=== PATIENT | female | born 1950 | race Caucasian/White ===

== ENCOUNTER 2020-06-03 08:01 | Outpatient (REF) | payer MEDICARE, OTHER, SELFPAY ==
[2020-06-03 10:17] LABS: MANUAL DIFF FLAG NO
[2020-06-03 10:23] LABS: Basophils Absolute Auto 0.1 X10*3/uL (0.0-0.2); Basophils Percent Auto 0.9 % (0-2); Eosinophils Absolute Auto 0.2 X10*3/uL (0.0-0.4); Eosinophils Percent Auto 2.7 % (0-4); Hematocrit 39.7 % (37-47); Imm Gran Abs Auto 0.02 X10*3/uL (0.00-0.03); Imm Gran Pct Auto 0.3 % (0.0-0.4); Lymphocytes Absolute Auto 1.7 X10*3/uL (1.2-4.9); Lymphocytes Percent Auto 22.5 % (20-40); Mean Corpuscular HGB Conc 32.7 g/dl (31.0-35.0); Mean Corpuscular Hemoglobin 28.8 pg (27.0-33.0); Mean Corpuscular Volume 87.8 fL (80-98); Mean Platelet Volume 12.1 fL (9.4-12.3); Monocytes Absolute Auto 0.6 X10*3/uL (0.1-1.2); Monocytes Percent Auto 7.8 % (2-11); Neutrophils Absolute Auto 4.9 X10*3/uL (2.0-8.3); Neutrophils Percent Auto 65.8 % (45-73); Platelet Count 179 X10*3/uL (160-400); Red Blood Count 4.52 X10*6/uL (4.20-5.50); Red Cell Distribution Width 13.1 % (11.0-16.0); White Blood Count 7.5 X10*3/uL (4.8-10.8)
[2020-06-03 10:36] LABS: Estimated Average Glucose 166 mg/dL; Hemoglobin A1c % 7.4 %
[2020-06-03 11:02] LABS: Alanine Aminotransferase 46 U/L (0-31); Albumin Level 4.4 g/dL (3.5-5.0); Alkaline Phosphatase 81 U/L (39-117); Anion Gap 15 (12-20); Aspartate Amino Transferase 37 U/L (5-31); Bilirubin Total 0.5 mg/dL (0.0-1.0); Blood Urea Nitrogen 17 mg/dL (9-16); Calcium 8.9 mg/dL (8.4-10.2); Carbon Dioxide 29 mmol/L (22-29); Chloride 103 mmol/L (96-108); Estimated Glomerular Filt Rate > 60; Glucose Fasting 163 mg/dL (60-99); Potassium 3.6 mmol/l (3.3-5.1); Sodium 143 mmol/L (135-145); Total Protein 7.4 g/dL (6.5-8.0)
[2020-06-03 11:40] LABS: Creatinine Urine 135.74 mg/dL
== END 2020-06-03 08:02 | disposition home or self-care (01) ==
LOC: HO.10HDL 08:01
PROVIDERS: Visit Provider Internal Medicine
DX: E11.9 Type 2 diabetes mellitus without complications (principal); K21.9 Gastro-esophageal reflux disease without esophagitis; I10 Essential (primary) hypertension
CPT/HCPCS: 36415; 80053; 82043; 83036; 85025

== ENCOUNTER 2020-06-05 10:30 | Outpatient (REF) | payer MEDICARE, SELFPAY ==
--- NOTE | 2020-06-05 10:35 | MM_ITS ---
EXAMINATION: MM SCREENING DIGITAL BREAST TOMOSYNTHESIS, BILATERAL CLINICAL INFORMATION: Screening. Asymptomatic. The lifetime risk of breast cancer based on the Tyrer-Cuzick Model is 3.4%. COMPARISON: Mammography: June 01, 2019 and studies dating back to January 11, 2014 TECHNIQUE: Digital breast tomosynthesis is performed in both the craniocaudal and mediolateral oblique views along with computer-aided detection (CAD). Synthesized 2D images are generated from the tomosynthesis. FINDINGS: There are scattered areas of fibroglandular density (ACR BI-RADS breast composition Category b). There are no significant masses, abnormal calcifications, or other abnormalities. MM/MM tomosynthesis screening BI IMPRESSION: There are no significant changes from prior study. ASSESSMENT: BI-RADS 1: Negative RECOMMENDATION: Routine annual mammography screening. This patient's information was entered into a reminder system with a target due date for their next mammogram.
== END 2020-06-05 10:31 | disposition home or self-care (01) ==
LOC: HO.MAMMO 10:30
PROVIDERS: PCP Internal Medicine; Visit Provider Internal Medicine
DX: Z12.31 Encounter for screening mammogram for malignant neoplasm of breast (principal)
CPT/HCPCS: 77063; 77067

== ENCOUNTER 2020-12-03 08:47 | Outpatient (REF) | payer MEDICARE, SELFPAY ==
[2020-12-03 09:56] LABS: MANUAL DIFF FLAG NO
[2020-12-03 10:03] LABS: Basophils Percent Auto 0.3 % (0-2); Eosinophils Absolute Auto 0.2 X10*3/uL (0.0-0.4); Eosinophils Percent Auto 2.2 % (0-4); Hematocrit 40.4 % (37-47); Hemoglobin 13.5 g/dl (12.0-16.0); Imm Gran Abs Auto 0.02 X10*3/uL (0.00-0.03); Imm Gran Pct Auto 0.3 % (0.0-0.4); Lymphocytes Absolute Auto 1.4 X10*3/uL (1.2-4.9); Lymphocytes Percent Auto 17.9 % (20-40); Mean Corpuscular HGB Conc 33.4 g/dl (31.0-35.0); Mean Corpuscular Hemoglobin 29.3 pg (27.0-33.0); Mean Corpuscular Volume 87.8 fL (80-98); Monocytes Absolute Auto 0.6 X10*3/uL (0.1-1.2); Monocytes Percent Auto 8.2 % (2-11); Neutrophils Absolute Auto 5.4 X10*3/uL (2.0-8.3); Neutrophils Percent Auto 71.1 % (45-73); Platelet Count 191 X10*3/uL (160-400); Red Cell Distribution Width 13.5 % (11.0-16.0); White Blood Count 7.7 X10*3/uL (4.8-10.8)
[2020-12-03 10:12] LABS: Estimated Average Glucose 166 mg/dL; Hemoglobin A1c % 7.4 %
[2020-12-03 10:33] LABS: Creatinine Urine 188.08 mg/dL; Microalbum/Creatinine Ratio Ur 72.8 ug/mg cr
[2020-12-03 10:41] LABS: Alanine Aminotransferase 70 U/L (0-31); Albumin Level 4.3 g/dL (3.5-5.0); Alkaline Phosphatase 86 U/L (39-117); Anion Gap 15 (12-20); Aspartate Amino Transferase 44 U/L (5-31); Bilirubin Total 0.6 mg/dL (0.0-1.0); Blood Urea Nitrogen 16 mg/dL (9-16); Calcium 9.2 mg/dL (8.4-10.2); Carbon Dioxide 26 mmol/L (22-29); Chloride 104 mmol/L (96-108); Estimated Glomerular Filt Rate > 60; Glucose Random 155 mg/dL (60-115); Potassium 3.8 mmol/L (3.3-5.1); Sodium 141 mmol/L (135-145); Total Protein 7.3 g/dL (6.5-8.0)
== END 2020-12-03 08:48 | disposition home or self-care (01) ==
LOC: HO.10HDL 08:47
PROVIDERS: Visit Provider Internal Medicine
DX: I10 Essential (primary) hypertension (principal); E11.9 Type 2 diabetes mellitus without complications; K21.9 Gastro-esophageal reflux disease without esophagitis
CPT/HCPCS: 36415; 80053; 82043; 83036; 85025

== ENCOUNTER 2021-05-25 08:33 | Outpatient (REF) | payer MEDICARE, OTHER, SELFPAY ==
[2021-05-25 10:08] LABS: MANUAL DIFF FLAG NO
[2021-05-25 10:12] LABS: Basophils Absolute Auto 0.1 X10*3/uL (0.0-0.2); Basophils Percent Auto 0.8 % (0-2); Eosinophils Absolute Auto 0.2 X10*3/uL (0.0-0.4); Eosinophils Percent Auto 3.1 % (0-4); Hematocrit 39.4 % (37.0-47.0); Hemoglobin 13.5 g/dl (12.0-16.0); Imm Gran Abs Auto 0.02 X10*3/uL (0.00-0.03); Imm Gran Pct Auto 0.3 % (0.0-0.4); Lymphocytes Absolute Auto 1.6 X10*3/uL (1.2-4.9); Lymphocytes Percent Auto 20.7 % (20-40); Mean Corpuscular HGB Conc 34.3 g/dl (31.0-35.0); Mean Corpuscular Volume 84.7 fL (80.0-98.0); Mean Platelet Volume 12.3 fL (9.4-12.3); Monocytes Absolute Auto 0.6 X10*3/uL (0.1-1.2); Monocytes Percent Auto 8.4 % (2-11); Neutrophils Absolute Auto 5.1 x10*3/uL (2.0-8.3); Neutrophils Percent Auto 66.7 % (45-73); Platelet Count 197 X10*3/uL (160-400); Red Blood Count 4.65 X10*6/uL (4.20-5.50); White Blood Count 7.6 X10*3/uL (4.8-10.8)
[2021-05-25 10:26] LABS: Alanine Aminotransferase 29 U/L (0-31); Albumin Level 4.3 g/dL (3.5-5.0); Alkaline Phosphatase 88 U/L (39-117); Anion Gap 14 (12-20); Aspartate Amino Transferase 21 U/L (5-31); Bilirubin Total 0.4 mg/dL (0.0-1.0); Blood Urea Nitrogen 18 mg/dL (9-16); Calcium 9.4 mg/dL (8.4-10.2); Carbon Dioxide 28 mmol/L (22-29); Chloride 103 mmol/L (96-108); Cholesterol 157 mg/dL; Estimated Glomerular Filt Rate > 60; Glucose Fasting 159 mg/dL (60-99); HDL Cholesterol 31 mg/dL; LDL Cholesterol Calculated 81 mg/dl; Potassium 3.7 mmol/L (3.3-5.1); Sodium 141 mmol/L (135-145); Total Protein 7.6 g/dL (6.5-8.0); Triglycerides 228 mg/dL
[2021-05-25 10:50] LABS: Creatinine Urine 78.28 mg/dL; Microalbum/Creatinine Ratio Ur 42.1 ug/mg cr
[2021-05-25 11:04] LABS: Estimated Average Glucose 180 mg/dL; Hemoglobin A1c % 7.9 %
== END 2021-05-25 08:34 | disposition home or self-care (01) ==
LOC: HO.10HDL 08:33
PROVIDERS: Visit Provider Internal Medicine
DX: I10 Essential (primary) hypertension (principal); E78.00 Pure hypercholesterolemia, unspecified; E11.9 Type 2 diabetes mellitus without complications
CPT/HCPCS: 36415; 80053; 80061; 82043; 83036; 85025

== ENCOUNTER 2021-07-31 15:42 | Outpatient (REF) | payer MEDICARE, OTHER, SELFPAY ==
--- NOTE | ~2021-07-31 | MM_ITS ---
EXAMINATION: MM SCREENING DIGITAL BREAST TOMOSYNTHESIS, BILATERAL CLINICAL INFORMATION: Screening. Asymptomatic. The lifetime risk of breast cancer based on the Tyrer-Cuzick Model is 3%. COMPARISON: Mammography: 06/05/2020, 06/01/2019, 04/08/2018 TECHNIQUE: Digital breast tomosynthesis is performed in both the craniocaudal and mediolateral oblique views along with computer-aided detection (CAD). Synthesized 2D images are generated from the tomosynthesis. Additional exaggerated right CC view is provided. FINDINGS: There are scattered areas of fibroglandular density (ACR BI-RADS breast composition Category b). There are no significant masses, abnormal calcifications, or other abnormalities. Parenchymal pattern is similar to prior studies. There is no developing density or architectural abnormality. The axilla and skin contours are unremarkable. No significant changes. MM/MM tomosynthesis screening BI IMPRESSION: No mammographic evidence of malignancy. ASSESSMENT: BI-RADS 1: Negative RECOMMENDATION: Routine annual mammography screening. This patient's information was entered into a reminder system with a target due date for their next mammogram.
== END 2021-07-31 15:43 | disposition home or self-care (01) ==
LOC: HO.MAMMO 15:42
PROVIDERS: Visit Provider Internal Medicine
DX: Z12.31 Encounter for screening mammogram for malignant neoplasm of breast (principal)
CPT/HCPCS: 77063; 77067

== ENCOUNTER 2021-08-31 08:25 | Outpatient (REF) | payer MEDICARE, OTHER, SELFPAY ==
[2021-08-31 10:06] LABS: MANUAL DIFF FLAG NO
[2021-08-31 10:16] LABS: Basophils Absolute Auto 0.1 X10*3/uL (0.0-0.2); Basophils Percent Auto 0.8 % (0-2); Eosinophils Absolute Auto 0.3 X10*3/uL (0.0-0.4); Eosinophils Percent Auto 3.5 % (0-4); Hematocrit 39.6 % (37.0-47.0); Hemoglobin 13.2 g/dl (12.0-16.0); Imm Gran Abs Auto 0.02 X10*3/uL (0.00-0.03); Imm Gran Pct Auto 0.3 % (0.0-0.4); Lymphocytes Absolute Auto 1.7 X10*3/uL (1.2-4.9); Lymphocytes Percent Auto 24.2 % (20-40); Mean Corpuscular HGB Conc 33.3 g/dl (31.0-35.0); Mean Corpuscular Hemoglobin 28.6 pg (27.0-33.0); Mean Corpuscular Volume 85.9 fL (80.0-98.0); Mean Platelet Volume 12.7 fL (9.4-12.3); Monocytes Absolute Auto 0.6 X10*3/uL (0.1-1.2); Monocytes Percent Auto 8.2 % (2-11); Neutrophils Absolute Auto 4.5 x10*3/uL (2.0-8.3); Platelet Count 192 X10*3/uL (160-400); Red Blood Count 4.61 X10*6/uL (4.20-5.50); Red Cell Distribution Width 13.2 % (11.0-16.0); White Blood Count 7.2 X10*3/uL (4.8-10.8)
[2021-08-31 10:28] LABS: Alanine Aminotransferase 28 U/L (0-31); Albumin Level 4.3 g/dL (3.5-5.0); Alkaline Phosphatase 87 U/L (39-117); Anion Gap 12 (12-20); Aspartate Amino Transferase 24 U/L (5-31); Bilirubin Total 0.5 mg/dL (0.0-1.0); Blood Urea Nitrogen 15 mg/dL (9-16); Calcium 9.7 mg/dL (8.4-10.2); Carbon Dioxide 29 mmol/L (22-29); Chloride 103 mmol/L (96-108); Estimated Glomerular Filt Rate > 60; Glucose Random 152 mg/dL (60-115); Potassium 3.9 mmol/L (3.3-5.1); Sodium 140 mmol/L (135-145); Total Protein 7.6 g/dL (6.5-8.0)
[2021-08-31 11:01] LABS: Creatinine Urine 162.45 mg/dL; Microalbum/Creatinine Ratio Ur 98.4 ug/mg cr
[2021-08-31 11:05] LABS: Estimated Average Glucose 160 mg/dL; Hemoglobin A1c % 7.2 %
== END 2021-08-31 08:26 | disposition home or self-care (01) ==
LOC: HO.10HDL 08:25
PROVIDERS: Visit Provider Internal Medicine
DX: E11.9 Type 2 diabetes mellitus without complications (principal); I10 Essential (primary) hypertension; K21.9 Gastro-esophageal reflux disease without esophagitis
CPT/HCPCS: 36415; 80053; 82043; 83036; 85025

== ENCOUNTER 2021-09-07 11:46 | Outpatient (REF) | payer MEDICARE, OTHER, SELFPAY ==
--- NOTE | ~2021-09-07 | XR_ITS ---
EXAMINATION: XR shoulder LT min 2V CLINICAL INFORMATION: Reason for Exam LEFT SHOULDER PAIN COMPARISON: None TECHNIQUE: Four views of the shoulder. XR/XR shoulder LT min 2V FINDINGS/IMPRESSION: No acute fracture or dislocation. Moderate degenerative changes of the glenohumeral and acromioclavicular joints with loss of the acromioclavicular joint space and subchondral cystic change in the humeral head. Soft tissues are unremarkable. Visualized portion of lung appears clear.
== END 2021-09-07 11:47 | disposition home or self-care (01) ==
LOC: HO.XRAY 11:46
PROVIDERS: PCP Internal Medicine; Visit Provider Internal Medicine
DX: M25.512 Pain in left shoulder (principal); Z91.81 History of falling
CPT/HCPCS: 73030

== ENCOUNTER → 2021-10-09 10:49 | Outpatient (BNVA) | payer MEDICARE, OTHER, SELFPAY | PROVIDERS: PCP Internal Medicine; Visit Provider Physician Assistant | DX: M77.8 Other enthesopathies, not elsewhere classified (principal) | CPT/HCPCS: 20610; 99202; J1020 ==

== ENCOUNTER 2021-10-12 10:16 | Outpatient (REF) | payer MEDICARE, OTHER, SELFPAY ==
--- NOTE | ~2021-10-12 | XR_ITS ---
EXAMINATION: XR KNEE, BILATERAL XR KNEE, RIGHT CLINICAL INFORMATION: Right knee pain. COMPARISON: 03/23/2014 TECHNIQUE: AP standing view both knees. Lateral and sunrise views of the right knee. FINDINGS: Marked medial compartment narrowing of the right knee with sclerosis and marginal osteophytes. Marginal osteophytes are present in the patellofemoral and lateral compartments. Faint chondrocalcinosis. Trace joint effusion. Mild osteoarthritis of the medial compartment of the left knee is noted, also with faint chondrocalcinosis. XR/XR knee standing BI IMPRESSION: Severe medial compartment osteoarthritis of the right knee has progressed since 2013. [id number] osteoarthritis of the patellofemoral and lateral compartments, as well as the medial compartment of the left knee. Trace right knee joint effusion.
--- NOTE | ~2021-10-12 | XR_ITS ---
EXAMINATION: XR KNEE, BILATERAL XR KNEE, RIGHT CLINICAL INFORMATION: Right knee pain. COMPARISON: 03/23/2014 TECHNIQUE: AP standing view both knees. Lateral and sunrise views of the right knee. FINDINGS: Marked medial compartment narrowing of the right knee with sclerosis and marginal osteophytes. Marginal osteophytes are present in the patellofemoral and lateral compartments. Faint chondrocalcinosis. Trace joint effusion. Mild osteoarthritis of the medial compartment of the left knee is noted, also with faint chondrocalcinosis. XR/XR knee RT 2V IMPRESSION: Severe medial compartment osteoarthritis of the right knee has progressed since 2013. [id number] osteoarthritis of the patellofemoral and lateral compartments, as well as the medial compartment of the left knee. Trace right knee joint effusion.
== END 2021-10-12 10:17 | disposition home or self-care (01) ==
LOC: HO.HOSX 10:16
PROVIDERS: PCP Internal Medicine; Visit Provider Physician Assistant
DX: M17.11 Unilateral primary osteoarthritis, right knee (principal)
CPT/HCPCS: 20610; 73560; 73565; 99212; J1020

== ENCOUNTER 2021-12-09 11:00 | Outpatient (RCR) | payer MEDICARE, OTHER, SELFPAY ==
--- NOTE | 2021-10-28 14:00 | MHC.PT.EP ---
[facility] [place] Office [place] Office [place] Office [address] Bridgette Tinoco [address] [phone] F: [phone] F: [phone] F: [phone] F: [phone] Physical Therapy Plan of Care Date of Evaluation: Date of Surgery: Diagnosis: L shoulder tendonitis Assessment: 71 y/o RHD female referred to PT with L shoulder tendonitis. Onset of shoulder pain after a fall onto shoulder 06/2021 resulting in pain and difficulty with reaching behind her back, L sidelying, and reaching overhead. S/s consistent with AC joint OA and tendonitis secondary to decreased L shoulder A/PROM, decreased L shoulder strength, increased pain at RTC tendons and AC joint, and impaired postural awareness. Recommend PT 2x/week for 6 weeks to address impairments, implement HEP, and optimize functional mobility. SHe can only come 1x/week. Frequency and Duration: The patient will be seen 2x/week for 6 weeks Short Term Goals: 3 weeks 1. Compliant with HEP 2. Improve L shoulder flexion to 130 to faciliate reaching overhead Armorer Technician Goals: 6 weeks 1. I with HEP and self management of sx 2. Pt will be able to reach behind back to don/doff bra 3. Pt will be able to reach into overhead cabinets with pain < 3/10 Treatment Plan: Modalities to reduce pain, spasms and effusion. Manual therapy to restore motion and function. Therapeutic exercise to improve strength and flexibility. Neuromuscular re-education for posture and balance. Therapeutic activities to return to functional activities of daily living. Electronically signed by: Keturah Evangelista PT Please sign and return to therapist. Thank you for your referral.
--- NOTE | 2022-01-19 16:06 | MHC.PT.DC ---
[facility] [place] Office [place] Office [place] Office [address] Bridgette Tinoco [address] [facility] [phone] F: [phone] F: [phone] F: [phone] F: [phone] Physical Therapy Discharge Report Diagnosis: L shoulder tendonitis Date of Surgery: Date of Evaluation: 10/28/21 Date of Discharge: 01/19/22 Treatments to Date: 6 Cancellations to Date: 0 No Shows to Date: 0 Discharge Status: Achieved Goals Improved Function Independent with HEP Discharge Summary: I with HEP and has made gains in ROM and strength. D/c at this time to I HEP. Electronically signed by: Keturah Evangelista PT Please sign and return to therapist. Thank you for your referral.
== END 2022-01-19 16:07 | disposition home or self-care (01) ==
LOC: HO.PT 11:00
PROVIDERS: Visit Provider Physician Assistant
DX: M77.8 Other enthesopathies, not elsewhere classified (principal)
CPT/HCPCS: 97110; 97140; 97161

== ENCOUNTER → 2022-01-11 14:04 | Outpatient (BNVA) | payer MEDICARE, OTHER, SELFPAY | PROVIDERS: PCP Internal Medicine; Visit Provider Physician Assistant | DX: M17.11 Unilateral primary osteoarthritis, right knee (principal) | CPT/HCPCS: 20610; 99212; J1020 ==

== ENCOUNTER 2022-03-16 07:38 | Outpatient (REF) | payer MEDICARE, OTHER, SELFPAY ==
[2022-03-16 10:54] LABS: Estimated Average Glucose 163 mg/dL; Hemoglobin A1c % 7.3 %
[2022-03-16 11:02] LABS: Alanine Aminotransferase 30 U/L (0-31); Albumin Level 4.4 g/dL (3.5-5.0); Alkaline Phosphatase 89 U/L (39-117); Anion Gap 16 (12-20); Aspartate Amino Transferase 20 U/L (5-31); Bilirubin Total 0.4 mg/dL (0.0-1.0); Blood Urea Nitrogen 19 mg/dL (9-16); Calcium 9.4 mg/dL (8.4-10.2); Carbon Dioxide 29 mmol/L (22-29); Chloride 101 mmol/L (96-108); Estimated Glomerular Filt Rate > 60; Glucose Fasting 177 mg/dL (60-99); Potassium 3.8 mmol/L (3.3-5.1); Sodium 142 mmol/L (135-145); Total Protein 7.7 g/dL (6.5-8.0)
[2022-03-16 11:09] LABS: Creatinine Urine 146.01 mg/dL; Microalbum/Creatinine Ratio Ur 47.2 ug/mg cr
== END 2022-03-16 07:39 | disposition home or self-care (01) ==
LOC: HO.10HDL 07:38
PROVIDERS: Visit Provider Internal Medicine
DX: E11.9 Type 2 diabetes mellitus without complications (principal); I10 Essential (primary) hypertension; E78.00 Pure hypercholesterolemia, unspecified
CPT/HCPCS: 36415; 80053; 82043; 83036

== ENCOUNTER → 2022-04-16 09:42 | Outpatient (BNVA) | payer MEDICARE, OTHER, SELFPAY | PROVIDERS: PCP Internal Medicine; Visit Provider Orthopaedic Surgery | DX: M17.11 Unilateral primary osteoarthritis, right knee (principal); E11.9 Type 2 diabetes mellitus without complications | CPT/HCPCS: 99212 ==

== ENCOUNTER → 2022-05-06 09:27 | Outpatient (BNVA) | payer MEDICARE, OTHER, SELFPAY | PROVIDERS: PCP Internal Medicine; Visit Provider Orthopaedic Surgery | DX: M17.11 Unilateral primary osteoarthritis, right knee (principal) | CPT/HCPCS: 20610; 99212; J7318 ==

== ENCOUNTER 2022-06-15 08:07 | Outpatient (REF) | payer MEDICARE, OTHER, SELFPAY ==
[2022-06-15 10:51] LABS: MANUAL DIFF FLAG NO
[2022-06-15 11:03] LABS: Basophils Absolute Auto 0.1 X10*3/uL (0.0-0.2); Basophils Percent Auto 0.8 % (0-2); Eosinophils Absolute Auto 0.2 X10*3/uL (0.0-0.4); Hematocrit 41.3 % (37.0-47.0); Hemoglobin 13.7 g/dl (12.0-16.0); Imm Gran Abs Auto 0.02 X10*3/uL (0.00-0.03); Imm Gran Pct Auto 0.3 % (0.0-0.4); Lymphocytes Absolute Auto 1.5 X10*3/uL (1.2-4.9); Lymphocytes Percent Auto 24.5 % (20-40); Mean Corpuscular HGB Conc 33.2 g/dl (31.0-35.0); Mean Corpuscular Hemoglobin 28.1 pg (27.0-33.0); Mean Corpuscular Volume 84.6 fL (80.0-98.0); Mean Platelet Volume 12.1 fL (9.4-12.3); Monocytes Absolute Auto 0.7 X10*3/uL (0.1-1.2); Monocytes Percent Auto 12.3 % (2-11); Neutrophils Absolute Auto 3.5 x10*3/uL (2.0-8.3); Neutrophils Percent Auto 59.1 % (45-73); Platelet Count 175 X10*3/uL (160-400); Red Blood Count 4.88 X10*6/uL (4.20-5.50)
[2022-06-15 11:14] LABS: Estimated Average Glucose 197 mg/dL; Hemoglobin A1c % 8.5 %
[2022-06-15 11:27] LABS: Alanine Aminotransferase 40 U/L (0-31); Albumin Level 4.4 g/dL (3.5-5.0); Alkaline Phosphatase 84 U/L (39-117); Anion Gap 15 (12-20); Aspartate Amino Transferase 32 U/L (5-31); Bilirubin Total 0.4 mg/dL (0.0-1.0); Blood Urea Nitrogen 17 mg/dL (9-16); Calcium 9.6 mg/dL (8.4-10.2); Carbon Dioxide 29 mmol/L (22-29); Chloride 101 mmol/L (96-108); Cholesterol 158 mg/dL; Estimated Glomerular Filt Rate > 60; Glucose Fasting 207 mg/dL (60-99); HDL Cholesterol 28 mg/dL; LDL Cholesterol Calculated 85 mg/dl; Potassium 3.6 mmol/L (3.3-5.1); Sodium 141 mmol/L (135-145); Total Protein 7.3 g/dL (6.5-8.0); Triglycerides 226 mg/dL
[2022-06-15 11:29] LABS: Creatinine Urine 241.74 mg/dL; Microalbum/Creatinine Ratio Ur 54.6 ug/mg cr
== END 2022-06-15 08:08 | disposition home or self-care (01) ==
LOC: HO.10HDL 08:07
PROVIDERS: Visit Provider Internal Medicine
DX: E11.9 Type 2 diabetes mellitus without complications (principal); I10 Essential (primary) hypertension; E78.00 Pure hypercholesterolemia, unspecified
CPT/HCPCS: 36415; 80053; 80061; 82043; 83036; 85025

== ENCOUNTER 2022-06-21 09:50 | Outpatient (REF) | payer MEDICARE, OTHER, SELFPAY ==
[2022-06-21 11:42] LABS: Influenza A PCR POSITIVE (Negative); Influenza B PCR NEGATIVE (Negative); Resp Syncy Virus RNA Qual PCR NEGATIVE (Negative); SARS COV2 PCR INHOUSE NEGATIVE (Negative)
== END 2022-06-21 09:51 | disposition home or self-care (01) ==
LOC: HO.10HDL 09:50
PROVIDERS: Visit Provider Internal Medicine
DX: Z13.89 Encounter for screening for other disorder (principal); Z20.822 Contact with and (suspected) exposure to COVID-19
CPT/HCPCS: 0241U

== ENCOUNTER 2022-09-01 10:09 | Outpatient (REF) | payer MEDICARE, OTHER, SELFPAY ==
--- NOTE | ~2022-09-01 | MM_ITS ---
EXAMINATION: MM SCREENING DIGITAL BREAST TOMOSYNTHESIS, BILATERAL CLINICAL INFORMATION: Screening. Asymptomatic. The lifetime risk of breast cancer based on the Tyrer-Cuzick Model is 3%. COMPARISON: Mammography: 07/31/2021, 06/05/2020, 06/01/2019 TECHNIQUE: Digital breast tomosynthesis is performed in both the craniocaudal and mediolateral oblique views along with computer-aided detection (CAD). Synthesized 2D images are generated from the tomosynthesis. FINDINGS: There are scattered areas of fibroglandular density (ACR BI-RADS breast composition Category b). There are no significant masses, abnormal calcifications, or other abnormalities. No architectural abnormality or developing density or significant change from prior studies. MM/MM tomosynthesis screening BI IMPRESSION: No mammographic evidence of malignancy. ASSESSMENT: BI-RADS 1: Negative RECOMMENDATION: Routine annual mammography screening. This patient's information was entered into a reminder system with a target due date for their next mammogram.
== END 2022-09-01 10:10 | disposition home or self-care (01) ==
LOC: HO.MAMMO 10:09
PROVIDERS: PCP Internal Medicine; Visit Provider Internal Medicine
DX: Z12.31 Encounter for screening mammogram for malignant neoplasm of breast (principal)
CPT/HCPCS: 77063; 77067

== ENCOUNTER 2022-12-23 08:24 | Outpatient (REF) | payer MEDICARE, OTHER, SELFPAY ==
[2022-12-23 10:52] LABS: Appearance Urine Cloudy; Color Urine Yellow; Glucose Urine UA Negative (Negative); Leukocyte Esterase Urine Moderate (2+) (Negative); Nitrite Urine Negative (Negative); PH 6.5 (5.0-9.0); UMIC TRIGGER UA YES; Urine Blood Negative (Negative); Urine Ketones Negative (Negative); Urine Protein Negative (Neg-Trace)
[2022-12-23 10:58] LABS: Bacteria Urine 4+ (None Seen); Hyaline Casts Urine 0-2 /LPF (0-2); RBC Urine 0-2 /HPF (0-2); Squamous Epithelial Cell Urine 0-2 /HPF (0-2); WBC Urine >50 /HPF (0-5)
[2022-12-23 11:14] LABS: Creatinine Urine 114.59 mg/dL; Microalbum/Creatinine Ratio Ur 42.7 ug/mg cr
[2022-12-23 11:16] LABS: Estimated Average Glucose 194 mg/dL; Hemoglobin A1c % 8.4 %
[2022-12-23 11:25] LABS: Alanine Aminotransferase 27 U/L (0-31); Albumin Level 4.1 g/dL (3.5-5.0); Alkaline Phosphatase 77 U/L (39-117); Anion Gap 14 (12-20); Aspartate Amino Transferase 24 U/L (5-31); Bilirubin Total 0.7 mg/dL (0.0-1.0); Blood Urea Nitrogen 14 mg/dL (9-16); Calcium 9.9 mg/dL (8.4-10.2); Carbon Dioxide 27 mmol/L (22-29); Chloride 102 mmol/L (96-108); Estimated Glomerular Filt Rate > 60; Glucose Random 191 mg/dL (60-115); Potassium 3.3 mmol/L (3.3-5.1); Sodium 140 mmol/L (135-145); Total Protein 7.5 g/dL (6.5-8.0)
== END 2022-12-23 08:25 | disposition home or self-care (01) ==
LOC: HO.10HDL 08:24
PROVIDERS: Visit Provider Internal Medicine
DX: E11.9 Type 2 diabetes mellitus without complications (principal); I10 Essential (primary) hypertension
CPT/HCPCS: 36415; 80053; 81001; 82043; 83036

== ENCOUNTER 2023-01-27 08:41 | Outpatient (REF) | payer MEDICARE, OTHER, SELFPAY ==
[2023-01-27 10:49] LABS: MANUAL DIFF FLAG NO
[2023-01-27 10:53] LABS: Basophils Absolute Auto 0.1 X10*3/uL (0.0-0.2); Basophils Percent Auto 0.9 % (0-2); Eosinophils Absolute Auto 0.2 X10*3/uL (0.0-0.4); Eosinophils Percent Auto 3.1 % (0-4); Hematocrit 39.7 % (37.0-47.0); Hemoglobin 13.5 g/dl (12.0-16.0); Imm Gran Abs Auto 0.03 X10*3/uL (0.00-0.03); Imm Gran Pct Auto 0.4 % (0.0-0.4); Lymphocytes Absolute Auto 1.6 X10*3/uL (1.2-4.9); Mean Corpuscular Hemoglobin 29.2 pg (27.0-33.0); Mean Corpuscular Volume 85.9 fL (80.0-98.0); Mean Platelet Volume 12.3 fL (9.4-12.3); Monocytes Absolute Auto 0.7 X10*3/uL (0.1-1.2); Monocytes Percent Auto 8.6 % (2-11); Neutrophils Absolute Auto 5.1 x10*3/uL (2.0-8.3); Platelet Count 187 X10*3/uL (160-400); Red Blood Count 4.62 X10*6/uL (4.20-5.50); Red Cell Distribution Width 13.2 % (11.0-16.0); White Blood Count 7.7 X10*3/uL (4.8-10.8)
[2023-01-27 11:12] LABS: Alanine Aminotransferase 36 U/L (0-31); Albumin Level 4.2 g/dL (3.5-5.0); Alkaline Phosphatase 80 U/L (39-117); Anion Gap 15 (12-20); Aspartate Amino Transferase 29 U/L (5-31); Bilirubin Total 0.4 mg/dL (0.0-1.0); Blood Urea Nitrogen 13 mg/dL (9-16); Calcium 9.5 mg/dL (8.4-10.2); Carbon Dioxide 25 mmol/L (22-29); Chloride 104 mmol/L (96-108); Estimated Glomerular Filt Rate > 60; Glucose Random 172 mg/dL (60-115); Potassium 3.5 mmol/L (3.3-5.1); Sodium 140 mmol/L (135-145); Total Protein 7.4 g/dL (6.5-8.0)
[2023-01-27 11:13] LABS: Estimated Average Glucose 183 mg/dL
== END 2023-01-27 08:42 | disposition home or self-care (01) ==
LOC: HO.10HDL 08:41
PROVIDERS: Visit Provider Internal Medicine
DX: E11.9 Type 2 diabetes mellitus without complications (principal); I10 Essential (primary) hypertension; K21.9 Gastro-esophageal reflux disease without esophagitis; G47.33 Obstructive sleep apnea (adult) (pediatric)
CPT/HCPCS: 36415; 80053; 82043; 83036; 85025

== ENCOUNTER 2023-03-30 11:27 | Outpatient (REF) | payer MEDICARE, OTHER, SELFPAY ==
[2023-03-30 13:24] LABS: MANUAL DIFF FLAG NO
[2023-03-30 13:36] LABS: Basophils Absolute Auto 0.1 X10*3/uL (0.0-0.2); Basophils Percent Auto 0.8 % (0-2); Eosinophils Absolute Auto 0.2 X10*3/uL (0.0-0.4); Eosinophils Percent Auto 1.8 % (0-4); Hematocrit 42.4 % (37.0-47.0); Hemoglobin 13.9 g/dl (12.0-16.0); Imm Gran Abs Auto 0.03 X10*3/uL (0.00-0.03); Imm Gran Pct Auto 0.4 % (0.0-0.4); Lymphocytes Absolute Auto 1.5 X10*3/uL (1.2-4.9); Lymphocytes Percent Auto 18.3 % (20-40); Mean Corpuscular HGB Conc 32.8 g/dl (31.0-35.0); Mean Corpuscular Hemoglobin 28.8 pg (27.0-33.0); Mean Platelet Volume 12.7 fL (9.4-12.3); Monocytes Absolute Auto 0.7 X10*3/uL (0.1-1.2); Monocytes Percent Auto 8.5 % (2-11); Neutrophils Absolute Auto 5.9 x10*3/uL (2.0-8.3); Neutrophils Percent Auto 70.2 % (45-73); Platelet Count 204 X10*3/uL (160-400); Red Blood Count 4.82 X10*6/uL (4.20-5.50); Red Cell Distribution Width 13.3 % (11.0-16.0); White Blood Count 8.4 X10*3/uL (4.8-10.8)
[2023-03-30 14:02] LABS: Estimated Average Glucose 157 mg/dL; Hemoglobin A1c % 7.1 % (<6.0)
[2023-03-30 14:10] LABS: Alanine Aminotransferase 31 U/L (0-31); Albumin Level 4.4 g/dL (3.5-5.0); Alkaline Phosphatase 80 U/L (39-117); Anion Gap 14 (12-20); Aspartate Amino Transferase 26 U/L (5-31); Bilirubin Total 0.4 mg/dL (0.0-1.0); Blood Urea Nitrogen 16 mg/dL (9-16); Calcium 10.1 mg/dL (8.4-10.2); Carbon Dioxide 27 mmol/L (22-29); Chloride 105 mmol/L (96-108); Estimated Glomerular Filt Rate > 60; Glucose Random 141 mg/dL (60-115); Potassium 3.6 mmol/L (3.3-5.1); Sodium 142 mmol/L (135-145); Total Protein 7.9 g/dL (6.5-8.0)
== END 2023-03-30 11:28 | disposition home or self-care (01) ==
LOC: HO.10HDL 11:27
PROVIDERS: Visit Provider Internal Medicine
DX: E11.9 Type 2 diabetes mellitus without complications (principal); I10 Essential (primary) hypertension; K21.9 Gastro-esophageal reflux disease without esophagitis
CPT/HCPCS: 36415; 80053; 83036; 85025

== ENCOUNTER 2023-06-29 11:47 | Outpatient (REF) | payer MEDICARE, OTHER, SELFPAY ==
[2023-06-29 13:15] LABS: MANUAL DIFF FLAG NO
[2023-06-29 13:16] LABS: Appearance Urine Cloudy; Color Urine Yellow; Glucose Urine UA >=1000 mg/dL (Negative); Leukocyte Esterase Urine Small (1+) (Negative); Nitrite Urine Positive (Negative); PH 5.5 (5.0-9.0); Specific Gravity - Urine >= 1.030 (1.005-1.025); UMIC TRIGGER UACC YES; Urine Blood Negative (Negative); Urine Ketones Negative (Negative); Urine Protein Negative (Neg-Trace)
[2023-06-29 13:19] LABS: Bacteria Urine 4+ (None Seen); Hyaline Casts Urine 0-2 /LPF (0-2); RBC Urine 0-2 /HPF (0-2); Squamous Epithelial Cell Urine 0-2 /HPF (0-2); UACC Culture Trigger YES
[2023-06-29 13:39] LABS: Estimated Average Glucose 160 mg/dL; Hemoglobin A1c % 7.2 % (<6.0)
[2023-06-29 13:50] LABS: Basophils Absolute Auto 0.1 X10*3/uL (0.0-0.2); Basophils Percent Auto 0.9 % (0-2); Eosinophils Absolute Auto 0.2 X10*3/uL (0.0-0.4); Eosinophils Percent Auto 2.5 % (0-4); Hematocrit 44.5 % (37.0-47.0); Imm Gran Abs Auto 0.05 X10*3/uL (0.00-0.03); Imm Gran Pct Auto 0.5 % (0.0-0.4); Lymphocytes Percent Auto 20.2 % (20-40); Mean Corpuscular HGB Conc 33.7 g/dl (31.0-35.0); Mean Corpuscular Hemoglobin 28.9 pg (27.0-33.0); Mean Corpuscular Volume 85.7 fL (80.0-98.0); Mean Platelet Volume 12.2 fL (9.4-12.3); Monocytes Absolute Auto 0.7 X10*3/uL (0.1-1.2); Monocytes Percent Auto 7.6 % (2-11); Neutrophils Absolute Auto 6.6 x10*3/uL (2.0-8.3); Neutrophils Percent Auto 68.3 % (45-73); Platelet Count 225 X10*3/uL (160-400); Red Blood Count 5.19 X10*6/uL (4.20-5.50); Red Cell Distribution Width 13.4 % (11.0-16.0); White Blood Count 9.7 X10*3/uL (4.8-10.8)
[2023-06-29 14:55] LABS: Creatinine Urine 51.04 mg/dL
[2023-06-29 16:17] LABS: Alanine Aminotransferase 30 U/L (0-31); Albumin Level 4.7 g/dL (3.5-5.0); Alkaline Phosphatase 97 U/L (39-117); Anion Gap 15 (12-20); Aspartate Amino Transferase 25 U/L (5-31); Bilirubin Total 0.4 mg/dL (0.0-1.0); Blood Urea Nitrogen 18 mg/dL (9-16); C Reactive Protein 0.23 mg/dL (< or = 0.50); Calcium 10.2 mg/dL (8.4-10.2); Carbon Dioxide 27 mmol/L (22-29); Chloride 101 mmol/L (96-108); Estimated Glomerular Filt Rate > 60; Glucose Random 141 mg/dL (60-115); Lipase 24 U/L (8-78); Potassium 3.7 mmol/L (3.3-5.1); Sodium 139 mmol/L (135-145); Total Protein 8.4 g/dL (6.5-8.0)
== END 2023-06-29 11:48 | disposition home or self-care (01) ==
LOC: HO.10HDL 11:47
PROVIDERS: Visit Provider Internal Medicine
DX: R10.11 Right upper quadrant pain (principal); E11.9 Type 2 diabetes mellitus without complications; I10 Essential (primary) hypertension
CPT/HCPCS: 36415; 80053; 81001; 82043; 82570; 83036; 83690; 85025; 86140; 87086; 87088; 87186

== ENCOUNTER 2023-07-11 08:06 | Outpatient (REF) | payer MEDICARE, OTHER, SELFPAY ==
--- NOTE | ~2023-07-11 | US_ITS ---
EXAMINATION: US ABDOMEN COMPLETE CLINICAL INFORMATION: Right upper quadrant pain. COMPARISON: CT abdomen and pelvis with contrast 07/03/2013. TECHNIQUE: Real-time imaging of the abdominal viscera. Technically limited study secondary to bowel gas and body habitus. FINDINGS: PANCREAS: Visualized portions of the pancreas are unremarkable however portions are obscured by bowel gas limiting evaluation. ABDOMINAL AORTA: The proximal, mid, and distal segments are normal in caliber. INFERIOR VENA CAVA: Visualized portions are normal. LIVER: Liver is mildly enlarged measuring 17.3 cm in span. The liver contour is normal. Increased hepatic echogenicity which can be seen in the setting of hepatic steatosis or underlying liver disease. No focal hepatic lesion. There is no intrahepatic biliary duct dilatation seen. GALLBLADDER: The gallbladder is physiologically distended. Multiple mobile gallstones are present. No evidence of gallbladder wall thickening or pericholecystic fluid. COMMON BILE DUCT: Normal in caliber measuring 0.4 cm in diameter. RIGHT KIDNEY: Normal. No hydronephrosis. No renal calculi or focal parenchymal lesions. The kidney measures 12.7 cm in maximum dimension. LEFT KIDNEY: Normal. No hydronephrosis. No renal calculi or focal parenchymal lesions. The kidney measures 12.5 cm in maximum dimension. SPLEEN: Normal. The spleen measures 11.1 cm in maximum dimension. FREE FLUID: None. US/US abdomen complete IMPRESSION: 1. Cholelithiasis without evidence of acute cholecystitis. 2. Hepatomegaly. Increased hepatic echogenicity which can be seen in the setting of hepatic steatosis or underlying liver disease. 3. Visualized portions of the pancreas are unremarkable however portions are obscured by bowel gas limiting evaluation.
== END 2023-07-11 08:07 | disposition home or self-care (01) ==
LOC: HO.US 08:06
PROVIDERS: PCP Internal Medicine; Visit Provider Internal Medicine
DX: R10.11 Right upper quadrant pain (principal)
CPT/HCPCS: 76700

== ENCOUNTER 2023-07-25 14:30 | Outpatient (AMB) | payer MEDICARE, OTHER, SELFPAY ==
--- NOTE | 2023-07-25 14:33 | MHC.OFFVIS ---
Intake Vital Signs 07/25/23 14:36 Height 5 ft 7 in Weight 190 lb BMI 29.8 BP 150/74 H Blood Pressure Location Rt brachial Position Sitting Pulse 85 Intake Visit Reasons: gallstones Intake Note: Patient referred by pcp Dr. Mock for gallstones. Recent abd US on 07-11-23. Patient c/o: discomfort and pain on RUQ. Security Police Officer Required: No Accompanied by: Self / Same As Patient Allergies No Known Allergies Allergy (Verified 07/25/23 14:34) HPI HPI Comments History of Present Illness Details Patient presents with a several month history of biliary symptoms. She has had epigastric/right upper quadrant pain radiating around to her back status post foods in particular greasy and fried foods. She otherwise has regular bowel habits. Has no other GI issues or complaints. 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 Chart was reviewed patient evaluated COUNTS INCLUDE 234 BEDS AT THE [facility] Surgical History (Updated 07/25/23 @ 14:46 by Melo Johnston MD) H/O hysterectomy for benign disease Physical Exam Vital Signs: Last Vital Signs Pulse 85 07/25/23 14:36 BP 150/74 H 07/25/23 14:36 BMI result Body Mass Index 29.8 Chest Other: Chest breath sounds bilaterally, HS 1 in 2 GI Other: Abdomen soft, modestly corpulent, benign. Assessment & Plan Assessment & Plan (1) Biliary colic: Code(s): K80.50 - Calculus of bile duct without cholangitis or cholecystitis without obstruction Plan: Risks, benefits, alternatives of laparoscopic possible open cholecystectomy reviewed with the patient and included but not limited to bleeding, infection, recurrence of symptoms, numbness, pain, scarring, bowel or bile duct injury or leak and the patient wishes to proceed. All questions answered. Arrangements were made for this. Coding Level of Care Code New Pt Level 5 (99824) Diagnoses Biliary colic K80.50
[2023-07-25 14:36] VITALS: BP 150/74; PULSE 85; BMI 29.8
== END 2023-07-25 14:45 | disposition home or self-care (01) ==
PROVIDERS: PCP Internal Medicine; Visit Provider Surgery
DX: K80.50 Calculus of bile duct without cholangitis or cholecystitis without obstruction (principal)
CPT/HCPCS: 99204

== ENCOUNTER → 2023-07-25 14:30 | Outpatient (BNVA) | payer MEDICARE, OTHER, SELFPAY | PROVIDERS: PCP Internal Medicine; Visit Provider Surgery | DX: K80.50 Calculus of bile duct without cholangitis or cholecystitis without obstruction (principal) | CPT/HCPCS: 99202 ==

== ENCOUNTER 2023-08-18 09:07 | Day surgery (SDC) | payer MEDICARE, OTHER, SELFPAY ==
[2023-08-16 08:02] VITALS: BMI 29.8
--- NOTE | 2023-08-17 09:25 | HO.ANESPROP2 ---
Documented by User: Arlet Cruz NP 08/17/23 09:26 HPI - Anesthesia Eval Consult details Narrative: 72yo F for Cholecystectomy Laparoscopic, possible open PMFSH Active Problems Active Problems: All Active Problems (Updated 10/12/21 @ 10:53 by Ren Harley PA-C) Biliary colic (Acute) Diabetes mellitus (Acute) Osteoarthritis of right knee (Acute) Left shoulder tendonitis (Acute) Surgical History Surgical History H/O hysterectomy for benign disease Social History Social History Comment: COUNTS CORRECT Patient Tobacco Use Status: Never used Tobacco Meds Allergies Allergy/AdvReac Type Severity Reaction Status Date / Time No Known Allergies Allergy Verified 07/25/23 14:34 Home Medications Medication Instructions Recorded Confirmed Last Taken Type fluoxetine 40 mg capsule 40 mg PO DAILY 10/09/21 08/18/23 Unknown History lisinopril 20 1 tab PO BID 10/09/21 08/18/23 Unknown History mg-hydrochlorothiazide 12.5 mg tablet omeprazole 20 mg capsule,delayed 20 mg PO DAILY 10/09/21 08/18/23 Unknown History release pen needle, diabetic 31 gauge x #1,200 ea 10/09/21 08/18/23 Unknown History 5/16 (BD Ultra-Fine Short Pen Needle) propranolol 60 mg capsule,24 60 mg PO DAILY 10/09/21 08/18/23 Unknown History hr,extended release simvastatin 40 mg tablet 40 mg PO BEDTIME 10/09/21 08/18/23 Unknown History empagliflozin 10 mg tablet 10 mg PO DAILY 08/18/23 08/18/23 08/17/23 History (Jardiance) Exam Height,Weight and Vital Signs: Height 5 ft 7 in Weight 86.183 kg Pertinent Lab Results Pertinent Lab Results: Laboratory Tests 06/29/23 11:55 WBC 9.7 Hgb 15.0 Hct 44.5 Plt Count 225 Sodium 139 Potassium 3.7 Chloride 101 Carbon Dioxide 27 BUN 18 H Creatinine 0.79 Assessment and Plan Assessment Anesthesia Assessment: Chart Reviewed Documented by User: Nicole Fernandez MD 08/18/23 11:32 PMFSH Active Problems Active Problems: All Active Problems (Updated 08/18/23 @ 10:20 by Nicole Fernandez MD Biliary colic (Acute) Diabetes mellitus (Acute) Osteoarthritis of right knee (Acute) Left shoulder tendonitis (Acute) GAMA. Uses CPAP HTN DM Family History Family history of problems with anesthesia: No Surgical History Surgical History H/O hysterectomy for benign disease History of Problems with Anesthesia: No Social History Social History Comment: COUNTS CORRECT Patient Tobacco Use Status: Never used Tobacco Meds Allergies Allergy/AdvReac Type Severity Reaction Status Date / Time No Known Allergies Allergy Verified 07/25/23 14:34 Home Medications Medication Instructions Recorded Confirmed Last Taken Type fluoxetine 40 mg capsule 40 mg PO DAILY 10/09/21 08/18/23 Unknown History lisinopril 20 1 tab PO BID 10/09/21 08/18/23 Unknown History mg-hydrochlorothiazide 12.5 mg tablet omeprazole 20 mg capsule,delayed 20 mg PO DAILY 10/09/21 08/18/23 Unknown History release pen needle, diabetic 31 gauge x #1,200 ea 10/09/21 08/18/23 Unknown History 5/16 (BD Ultra-Fine Short Pen Needle) propranolol 60 mg capsule,24 60 mg PO DAILY 10/09/21 08/18/23 Unknown History hr,extended release simvastatin 40 mg tablet 40 mg PO BEDTIME 10/09/21 08/18/23 Unknown History empagliflozin 10 mg tablet 10 mg PO DAILY 08/18/23 08/18/23 08/17/23 History (Jardiance) Exam Height,Weight and Vital Signs: Height 5 ft 7 in Weight 86.183 kg T 97.6 BP 136/77 HR 70 RR 16 O2sats 95%(RA) Pertinent Lab Results Pertinent Lab Results: Laboratory Tests 06/29/23 11:55 WBC 9.7 Hgb 15.0 Hct 44.5 Plt Count 225 Sodium 139 Potassium 3.7 Chloride 101 Carbon Dioxide 27 BUN 18 H Creatinine 0.79 Lab Results 08/18/23 Range/Units 10:24 POC Glucose 150 H (60-115) mg/dL Airway Mallampati Class: II TM Dist: >3cm Neck ROM: Full Partial: Upper Loose/Missing/Broken Teeth: Yes (Denies broken or loose teeth) Heart: RRR Lungs: CTAB Assessment and Plan Assessment Anesthesia Assessment: Anesthesia Plan Discussed and Chart Reviewed Final Anesthetic Review Family History of Problems with Anesthesia: No History of Problems with Anesthesia: No NPO: Yes ASA Class: III Final Preanesthetic Review: No Changes in Pt Med Stat, Meds/Allgs Chart Reviewed, Consent Obtained/Reviewed and Anes Risks/Benef Reviewed Patient Risk: Intermediate Procedure Risk: Intermediate Assessment/Block/Sedation in SS: Assess/Block/Sedation-SS Anesthetic Plan Anesthetic Plan: GA Disposition: Standard PACU
--- NOTE | 2023-08-17 09:28 | MHC.SHP ---
Pre-Procedural Eval Section A - 24 Hr Update-Section A only Date of Service: 08/17/23 The patient is an INPATIENT: No Changes since office visit: No Cold of Flu in the past 2 weeks, No New Medical Problems, No Changes in Medication and No Patient answered all questions The patient has been examined within 24 hours of the surgical procedure. The History & Physical has been completed within 30 days and I have reviewed it.: Yes Section B - Complete if H&P > 30 days Chief Complaint: Calculus of bile duct without cholangitis or bradley Allergies: Allergies Allergy/AdvReac Type Severity Reaction Status Date / Time No Known Allergies Allergy Verified 07/25/23 14:34 Plan I have reviewed the history and physical and performed a pertinent physical examination on my patient. No changes have occurred unless specified. Time Spent With Patient Time: Total time managing care of this patient today ____ minutes.
[2023-08-18] VITALS (12 sets, daily range): BP systolic 136–188; BP diastolic 63–92; PULSE 50–70; RESP 16–18; TEMP 36.1–36.4; O2SAT 93–100; BMI 32.6
[2023-08-18 10:28] LABS: Glucose, Whole Blood 150 mg/dL (60-115)
--- NOTE | 2023-08-18 11:23 | W.PM.OPN ---
Operative Note Operative Note Date of Service: 08/18/23 Narrative: Preoperative diagnosis: [] Biliary colic, incarcerated umbilical hernia Postop diagnosis: [] Same Procedure [] 1. Laparoscopic cholecystectomy 2. Repair incarcerated umbilical hernia primary closure Surgeon: Priscilla Insurance Sales Producer: [] Elizabeth Type of Anesthesia: [] general Indication for surgery: [] A proximally 2 cm incarcerated umbilical hernia with omental contents. Gallbladder with multiple small gallstones. Omental adhesions to the gallbladder. Markedly intrahepatic gallbladder Findings: [] Patient brought to the operating room, placed on operative table in supine position, after an adequate level of general anesthesia was induced, the patient's abdomen was prepped and draped in usual sterile fashion. Using a supraumbilical curvilinear incision, this carried down through skin, subcutaneous tissue, where hernia sac was identified and circumferentially dissected down the fascia. This was dissected off the posterior aspect of the umbilicus. Sac was opened were incarcerated omental contents and sac were amputated and fascia margins cleared. Salazar technique was used through this hernia site to insufflate the abdominal cavity to 15 mm of CO2. Upper midline and right subcostal ports were placed under direct laparoscopic view, and the patient placed in reverse Trendelenburg position, and tilted to the left. Findings were as noted above. Gallbladder was grasped using laparoscopic graspers, and retracted superiorly and laterally. Omental adhesions were swept off the gallbladder was hilum was approached. Common bile duct was identified and preserved throughout the procedure. Cystic artery and cystic duct were each identified, circumferentially skeletonized, traced directly into the gallbladder, and critical view obtained. Each was clipped proximally x2, distally x1, and transected. Gallbladder was then cauterized from the gallbladder fossa using Bovie. Specimen was placed in an Endo-Catch bag, a retrieved through the umbilical port. Abdominal cavity was copiously irrigated, and secured hemostasis. All ports were removed under direct laparoscopic view. Wounds were closed in the following manner; umbilical wound which was the site of the incarcerated hernia was closed primarily using interrupted 0 Vicryl sutures. Skin wounds were closed using subcuticular 4-0 Vicryl sutures followed by Steri-Strips and sterile dressings. Wounds were infiltrated 0.5% Marcaine at completion. Sponge, needle, and instrument counts were reported correct. Patient tolerated the procedure well and emerged from anesthesia stable condition. EBL minimal
[2023-08-18] MEDS: oxyCODONE HCl Immed Release 5 MG TABLET PO (11:48)
[2023-08-18] MEDS: fentaNYL citrate/PF 100 MCG/2 ML VIAL 25 MCG IVPUSH ×3 (11:49→11:59)
== END 2023-08-18 15:00 | disposition home or self-care (01) ==
PROVIDERS: PCP Internal Medicine; Visit Provider Surgery
PROC: 0FT44ZZ Resection of Gallbladder, Percutaneous Endoscopic Approach (ICD-10-PCS; CPT 47562; principal; 2023-08-18 11:10)
DX: K80.10 Calculus of gallbladder with chronic cholecystitis without obstruction (principal); K82.8 Other specified diseases of gallbladder; Q44.1 Other congenital malformations of gallbladder; K42.0 Umbilical hernia with obstruction, without gangrene; I10 Essential (primary) hypertension; E11.9 Type 2 diabetes mellitus without complications; G47.33 Obstructive sleep apnea (adult) (pediatric); Z79.899 Other long term (current) drug therapy; Z99.89 Dependence on other enabling machines and devices; Z90.710 Acquired absence of both cervix and uterus
CPT/HCPCS: 47562; 49592; 82947; 88302; 88304; J0131; J0665; J0690; J1100; J2371; J2405; J2704; J3010

== ENCOUNTER → 2023-08-18 09:07 | Outpatient (BNV) | payer MEDICARE, OTHER, SELFPAY | PROVIDERS: PCP Internal Medicine; Visit Provider Surgery | DX: K80.50 Calculus of bile duct without cholangitis or cholecystitis without obstruction (principal); K42.0 Umbilical hernia with obstruction, without gangrene | CPT/HCPCS: 47562 ==

== ENCOUNTER 2023-08-29 11:22 | Outpatient (AMB) | payer MEDICARE, OTHER, SELFPAY ==
[2023-08-29 11:27] VITALS: BP 130/72; PULSE 90
--- NOTE | 2023-08-29 11:27 | A.OFFVIS_ITS ---
Intake Vital Signs 08/29/23 11:27 Weight 187 lb BP 130/72 Blood Pressure Location Rt brachial Position Sitting Pulse 90 Intake Visit Reasons: S/P lap bradley Intake Note: Patient here s/p lap bradley on 08-18-23. Reports incisions healing well. No longer taking rx pain meds. Measurement Psychologist Required: No Accompanied by: Self / Same As Patient Allergies No Known Allergies Allergy (Verified 08/29/23 11:28) HPI HPI Comments History of Present Illness Details Patient presents for follow-up. She is doing well. She has tolerating a diet. Having regular bowel habits. She has no incisional issues. PFSH Surgical History Hx laparoscopic cholecystectomy (08/18/23) H/O hysterectomy for benign disease Social History Comment: COUNTS CORRECT Patient Tobacco Use Status: Never used Tobacco Physical Exam Vital Signs: Last Vital Signs Pulse 90 08/29/23 11:27 BP 130/72 08/29/23 11:27 Eyes Other: Anicteric GI Other: Abdomen soft. All wounds clean dry and intact. Assessment & Plan Assessment & Plan (1) Status post laparoscopic cholecystectomy: Code(s): Z90.49 - Acquired absence of other specified parts of digestive tract Plan Patient has been given local instructions, and will follow-up p.r.n.. All questions answered. Coding Level of Care Code Global (56656) Diagnoses Status post laparoscopic cholecystectomy Z90.49
== END 2023-08-29 11:34 | disposition home or self-care (01) ==
PROVIDERS: PCP Internal Medicine; Visit Provider Surgery
DX: Z90.49 Acquired absence of other specified parts of digestive tract (principal)
CPT/HCPCS: 99024

== ENCOUNTER → 2023-08-29 11:22 | Outpatient (BNVA) | payer MEDICARE, OTHER, SELFPAY | PROVIDERS: PCP Internal Medicine; Visit Provider Surgery | DX: Z90.49 Acquired absence of other specified parts of digestive tract (principal) | CPT/HCPCS: 99212 ==

== ENCOUNTER 2023-09-07 10:00 | Outpatient (REF) | payer MEDICARE, OTHER, SELFPAY | END 2023-09-07 10:01 | disposition home or self-care (01) | LOC: HO.MAMMO 10:00 | PROVIDERS: PCP Internal Medicine; Visit Provider Internal Medicine | DX: Z12.31 Encounter for screening mammogram for malignant neoplasm of breast (principal) | CPT/HCPCS: 77063; 77067 ==

== ENCOUNTER → 2023-09-07 10:15 | Outpatient (BNV) | payer MEDICARE, OTHER, SELFPAY | PROVIDERS: PCP Internal Medicine; Visit Provider Radiology Diagnostic Radiology | DX: Z12.31 Encounter for screening mammogram for malignant neoplasm of breast (principal) | CPT/HCPCS: 77063; 77067 ==

== ENCOUNTER 2023-12-12 09:12 | Outpatient (REF) | payer MEDICARE, OTHER, SELFPAY ==
[2023-12-12 11:06] LABS: MANUAL DIFF FLAG NO
[2023-12-12 11:08] LABS: Basophils Absolute Auto 0.1 X10*3/uL (0.0-0.2); Basophils Percent Auto 1.1 % (0-2); Eosinophils Absolute Auto 0.2 X10*3/uL (0.0-0.4); Eosinophils Percent Auto 2.4 % (0-4); Hematocrit 42.3 % (37.0-47.0); Hemoglobin 14.7 g/dl (12.0-16.0); Imm Gran Abs Auto 0.02 X10*3/uL (0.00-0.03); Imm Gran Pct Auto 0.2 % (0.0-0.4); Lymphocytes Absolute Auto 1.7 X10*3/uL (1.2-4.9); Lymphocytes Percent Auto 20.8 % (20-40); Mean Corpuscular HGB Conc 34.8 g/dl (31.0-35.0); Mean Corpuscular Hemoglobin 29.2 pg (27.0-33.0); Mean Corpuscular Volume 84.1 fL (80.0-98.0); Mean Platelet Volume 11.7 fL (9.4-12.3); Monocytes Absolute Auto 0.6 X10*3/uL (0.1-1.2); Monocytes Percent Auto 7.4 % (2-11); Neutrophils Absolute Auto 5.5 x10*3/uL (2.0-8.3); Neutrophils Percent Auto 68.1 % (45-73); Platelet Count 163 X10*3/uL (160-400); Red Blood Count 5.03 X10*6/uL (4.20-5.50); Red Cell Distribution Width 13.6 % (11.0-16.0)
[2023-12-12 11:18] LABS: Estimated Average Glucose 163 mg/dL; Hemoglobin A1c % 7.3 % (<6.0)
[2023-12-12 11:28] LABS: Alanine Aminotransferase 26 U/L (0-31); Albumin Level 4.3 g/dL (3.5-5.0); Alkaline Phosphatase 99 U/L (39-117); Anion Gap 13 (12-20); Aspartate Amino Transferase 21 U/L (5-31); Bilirubin Total 0.4 mg/dL (0.0-1.0); Blood Urea Nitrogen 15 mg/dL (9-16); Calcium 9.8 mg/dL (8.4-10.2); Carbon Dioxide 28 mmol/L (22-29); Chloride 102 mmol/L (96-108); Estimated Glomerular Filt Rate > 60; Glucose Random 205 mg/dL (60-115); Potassium 3.5 mmol/L (3.3-5.1); Sodium 139 mmol/L (135-145); Total Protein 7.7 g/dL (6.5-8.0)
== END 2023-12-12 09:13 | disposition home or self-care (01) ==
LOC: HO.10HDL 09:12
PROVIDERS: Visit Provider Internal Medicine
DX: E11.9 Type 2 diabetes mellitus without complications (principal); I10 Essential (primary) hypertension; J44.9 Chronic obstructive pulmonary disease, unspecified
CPT/HCPCS: 36415; 80053; 83036; 85025

== ENCOUNTER 2024-03-20 09:01 | Outpatient (REF) | payer MEDICARE, OTHER, SELFPAY ==
[2024-03-20 11:01] LABS: MANUAL DIFF FLAG NO
[2024-03-20 11:03] LABS: Basophils Absolute Auto 0.1 X10*3/uL (0.0-0.2); Basophils Percent Auto 1.1 % (0-2); Eosinophils Absolute Auto 0.2 X10*3/uL (0.0-0.4); Eosinophils Percent Auto 2.3 % (0-4); Hematocrit 43.2 % (37.0-47.0); Hemoglobin 14.9 g/dl (12.0-16.0); Imm Gran Abs Auto 0.03 X10*3/uL (0.00-0.03); Imm Gran Pct Auto 0.3 % (0.0-0.4); Lymphocytes Absolute Auto 1.4 X10*3/uL (1.2-4.9); Lymphocytes Percent Auto 15.4 % (20-40); Mean Corpuscular HGB Conc 34.5 g/dl (31.0-35.0); Mean Corpuscular Hemoglobin 29.7 pg (27.0-33.0); Mean Corpuscular Volume 86.1 fL (80.0-98.0); Mean Platelet Volume 11.8 fL (9.4-12.3); Monocytes Absolute Auto 0.6 X10*3/uL (0.1-1.2); Monocytes Percent Auto 6.7 % (2-11); Neutrophils Percent Auto 74.2 % (45-73); Platelet Count 183 X10*3/uL (160-400); Red Blood Count 5.02 X10*6/uL (4.20-5.50); Red Cell Distribution Width 13.7 % (11.0-16.0); White Blood Count 9.4 X10*3/uL (4.8-10.8)
[2024-03-20 11:21] LABS: Estimated Average Glucose 174 mg/dL; Hemoglobin A1c % 7.7 % (<6.0)
[2024-03-20 11:26] LABS: Alanine Aminotransferase 32 U/L (0-31); Albumin Level 4.3 g/dL (3.5-5.0); Alkaline Phosphatase 84 U/L (39-117); Anion Gap 14 (12-20); Aspartate Amino Transferase 23 U/L (5-31); Bilirubin Total 0.5 mg/dL (0.0-1.0); Blood Urea Nitrogen 20 mg/dL (9-16); Calcium 9.8 mg/dL (8.4-10.2); Carbon Dioxide 26 mmol/L (22-29); Chloride 104 mmol/L (96-108); Cholesterol 180 mg/dL (<200); Estimated Glomerular Filt Rate > 60; Glucose Fasting 215 mg/dL (60-99); HDL Cholesterol 31 mg/dL (>40); LDL Cholesterol Calculated 79 mg/dL (<100); Potassium 3.6 mmol/L (3.3-5.1); Sodium 140 mmol/L (135-145); Total Protein 7.6 g/dL (6.5-8.0); Triglycerides 351 mg/dL (<150)
[2024-03-20 11:31] LABS: Creatinine Urine 73.74 mg/dL; Microalbum/Creatinine Ratio Ur 20.3 ug/mg cr (<30)
== END 2024-03-20 09:02 | disposition home or self-care (01) ==
LOC: HO.10HDL 09:01
PROVIDERS: Visit Provider Internal Medicine
DX: E11.9 Type 2 diabetes mellitus without complications (principal); I10 Essential (primary) hypertension; E78.00 Pure hypercholesterolemia, unspecified; K21.9 Gastro-esophageal reflux disease without esophagitis; M19.90 Unspecified osteoarthritis, unspecified site
CPT/HCPCS: 36415; 80053; 80061; 82043; 82570; 83036; 84443; 85025

== ENCOUNTER 2024-04-11 11:09 | Outpatient (AMB) | payer MEDICARE, OTHER, SELFPAY ==
--- NOTE | 2024-04-11 11:11 | MHC.OFFVIS ---
Vital Signs 04/11/24 11:16 Weight 190 lb BP 146/76 H Blood Pressure Location Rt brachial Position Sitting Pulse 85 Intake Visit Reasons: Lump on neck Intake Note: Patient referred by pcp Dr. Mock for lump on Lt neck. Present for 1m. Patient c/o: changing in size, smaller. Denies pain, oozing. No hx of skin ca. Of note: Hx of lap bradley repair on 08-18-2024. Reports doing well. 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 This has been going on for several days time. Because of progression of symptoms, she presents here for further evaluation. She has never had this before. Chart was reviewed and patient evaluated [facility] Surgical History Hx laparoscopic cholecystectomy (08/18/23) H/O hysterectomy for benign disease Social History Comment: COUNTS CORRECT Patient Tobacco Use Status: Never used Tobacco Physical Exam Vital Signs: Last Vital Signs Pulse 85 04/11/24 11:16 BP 146/76 H 04/11/24 11:16 Neck Other: Moderately inflamed left mid neck sebaceous cyst measuring roughly 3 x 2 cm. No evidence of fluctuance or abscess demonstrated. Assessment & Plan Assessment & Plan (1) Infected sebaceous cyst: Code(s): L72.3 - Sebaceous cyst; L08.9 - Local infection of the skin and subcutaneous tissue, unspecified Category: Surgical Plan Current plan is to attempt antibiotics as well as local wound care in the form of warm compresses and the patient will see me in few days' time for follow-up. Should this process progressed during the interim, patient was instructed to contact the office or go to the emergency room. All questions answered. Arrangements will be as noted above. Medications: New cephalexin 500 mg PO TID 30 caps 0RF Coding Level of Care Code Est Pt Level 4 (13402) Diagnoses Infected sebaceous cyst L72.3; L08.9
[2024-04-11 11:16] VITALS: BP 146/76; PULSE 85
== END 2024-04-11 11:28 | disposition home or self-care (01) ==
PROVIDERS: PCP Internal Medicine; Visit Provider Surgery
DX: L72.3 Sebaceous cyst (principal); L08.9 Local infection of the skin and subcutaneous tissue, unspecified
CPT/HCPCS: 99214

== ENCOUNTER → 2024-04-11 11:09 | Outpatient (BNVA) | payer MEDICARE, OTHER, SELFPAY | PROVIDERS: PCP Internal Medicine; Visit Provider Surgery | DX: L72.3 Sebaceous cyst (principal); L08.9 Local infection of the skin and subcutaneous tissue, unspecified | CPT/HCPCS: 99212 ==

== ENCOUNTER 2024-05-08 11:08 | Outpatient (AMB) | payer MEDICARE, SELFPAY ==
--- NOTE | 2024-05-08 11:19 | MHC.OFFVIS ---
Vital Signs 05/08/24 11:20 Height 5 ft 5 in Weight 190 lb BMI 31.6 BP 128/78 Blood Pressure Location Lt brachial Position Sitting Intake Visit Reasons: 2 wk follow up Lump on neck Intake Note: Patient here for 2wk follow up lump on neck. Cephalexin course finished. Patient c/o: reports no complaints. 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 She has had marked improvement of her symptoms. [facility], LAT[facility] Surgical History Hx laparoscopic cholecystectomy (08/18/23) H/O hysterectomy for benign disease Social History Comment: COUNTS CORRECT Patient Tobacco Use Status: Never used Tobacco Physical Exam Vital Signs: Last Vital Signs BP 128/78 05/08/24 11:20 BMI result Body Mass Index 31.6 Neck Other: Roughly 3 x 3 cm left neck mass consistent with a large sebaceous cyst demonstrates complete resolution of the inflammatory/infective process. Chest Other: Chest breath sounds bilaterally, HS 1 in 2 GI Other: Abdomen soft, corpulent, benign Assessment & Plan Assessment & Plan (1) Sebaceous cyst: Code(s): L72.3 - Sebaceous cyst Category: Surgical Plan Patient would like to go excision of this left cyst/mass. Risks, benefits, alternatives of excision of left neck mass/cyst were reviewed with the patient and included but not limited to bleeding, infection, recurrence, numbness, pain, scarring the patient wished to proceed. All questions answered. Arrangements were made for this. Coding Level of Care Code Est Pt Level 5 (85229) Diagnoses Sebaceous cyst L72.3
[2024-05-08 11:20] VITALS: BP 128/78; BMI 31.6
== END 2024-05-08 11:31 | disposition home or self-care (01) ==
LOC: HO.HGS 11:09
PROVIDERS: PCP Internal Medicine; Visit Provider Surgery
DX: L72.3 Sebaceous cyst (principal)
CPT/HCPCS: 99214

== ENCOUNTER → 2024-05-08 11:08 | Outpatient (BNVA) | payer MEDICARE, OTHER, SELFPAY | PROVIDERS: PCP Internal Medicine; Visit Provider Surgery | DX: L72.3 Sebaceous cyst (principal) | CPT/HCPCS: 99212 ==

== ENCOUNTER 2024-05-25 09:57 | Day surgery (SDC) | payer MEDICARE, OTHER, SELFPAY ==
[2024-05-25 10:30] VITALS: BMI 31.3
[2024-05-25 11:06] VITALS: BP 162/107; PULSE 114; RESP 15; TEMP 37.1; O2SAT 93
[2024-05-25 11:18] LABS: Glucose, Whole Blood 219 mg/dL (60-115)
--- NOTE | 2024-05-25 11:30 | MHC.SHP ---
Pre-Procedural Eval Section A - 24 Hr Update-Section A only Date of Service: 05/25/24 The patient is an INPATIENT: No Changes since office visit: No Cold of Flu in the past 2 weeks, No New Medical Problems, No Changes in Medication and No Patient answered all questions Section B - Complete if H&P > 30 days Chief Complaint: Sebaceous cyst Allergies: Allergies Allergy/AdvReac Type Severity Reaction Status Date / Time No Known Allergies Allergy Verified 05/25/24 10:29 Review of Systems Sugical H&P ROS: Negative: Constitution, Cardiovascular, Respiratory, Neurological, Psychiatric, Hem-Onc, Allergic/Immunologic, Gastrointestinal, Genitourinary, Musculoskeletal, Integumentary, Endocrine and Eyes/Ears/Nose/Throat Exam Surgical H&P Exam: Normal: HEENT, Normal: Heart, Normal: Lungs, Normal: Extremities, Normal: Abdomen, Normal: Skin and Normal: Neurological Plan I have reviewed the history and physical and performed a pertinent physical examination on my patient. No changes have occurred unless specified. Time Spent With Patient Time: Total time managing care of this patient today ____ minutes.
--- NOTE | 2024-05-25 11:45 | HO.ANESPROP2 ---
HPI - Anesthesia Eval Consult details Narrative: 73 yo F presenting for left neck cyst excision. PMFSH Active Problems Active Problems: All Active Problems Sebaceous cyst (Acute) Infected sebaceous cyst (Acute) Status post laparoscopic cholecystectomy (Acute) Biliary colic (Acute) Diabetes mellitus (Acute) Osteoarthritis of right knee (Acute) Left shoulder tendonitis (Acute) Past Medical History Medical History (Updated 05/25/24 @ 11:06 by Mariella Harris RN) Anxiety Sleep apnea Elevated cholesterol HTN (hypertension) Diabetes Family History Family history of problems with anesthesia: No Surgical History Surgical History (Updated 05/08/24 @ 12:43 by Melo Johnston MD) Hx laparoscopic cholecystectomy (08/18/23) H/O hysterectomy for benign disease History of Problems with Anesthesia: No Social History Social History Comment: COUNTS CORRECT Patient Tobacco Use Status: Never used Tobacco Use of substances other than those prescribed or required for medical reasons: No Are you DNR?: No Advance Directives: No Advance Directives Information Provided: Yes Meds Allergies Allergy/AdvReac Type Severity Reaction Status Date / Time No Known Allergies Allergy Verified 05/25/24 10:29 Active Medications: Current Medications Cefazolin Sodium/Dextrose (Ancef) 2 gm in 50 mls @ 100 mls/hr IV PREOP ONE Stop: 05/25/24 11:58 Home Medications ?Medication ?Instructions ?Recorded ?Confirmed ?Last Taken ?Type fluoxetine 40 mg capsule 40 mg PO DAILY 10/09/21 05/25/24 Unknown History lisinopril 20 1 tab PO BID 10/09/21 05/25/24 Unknown History mg-hydrochlorothiazide 12.5 mg tablet omeprazole 20 mg capsule,delayed 20 mg PO DAILY 10/09/21 05/25/24 Unknown History release pen needle, diabetic 31 gauge x #1,200 ea 10/09/21 05/25/24 Unknown History /16 (BD Ultra-Fine Short Pen Needle) propranolol 60 mg capsule,24 60 mg PO DAILY 10/09/21 05/25/24 Unknown History hr,extended release simvastatin 40 mg tablet 40 mg PO BEDTIME 10/09/21 05/25/24 Unknown History empagliflozin 10 mg tablet 10 mg PO DAILY 08/18/23 05/25/24 05/22/24 History (Jardiance) Exam Exam Date and Time: 05/25/24 1140 Height,Weight and Vital Signs: Height 5 ft 5 in Weight 85.275 kg Last Vital Signs Temp 98.8 F 05/25/24 11:06 Pulse 114 H 05/25/24 11:06 Resp 15 05/25/24 11:06 BP 162/107 H 05/25/24 11:06 Pulse Ox 93 05/25/24 11:06 O2 Del Method Room Air 05/25/24 11:06 Pertinent Lab Results Pertinent Lab Results: Laboratory Tests 05/25/24 11:13 POC Glucose 219 H Airway Mallampati Class: II TM Dist: >3cm Neck ROM: Full Denture: Upper Heart: S1S2 Lungs: CTAB Assessment and Plan Assessment Anesthesia Assessment: Anesthesia Plan Discussed and Chart Reviewed Final Anesthetic Review Family History of Problems with Anesthesia: No History of Problems with Anesthesia: No NPO: Yes ASA Class: III Final Preanesthetic Review: No Changes in Pt Med Stat, Meds/Allgs Chart Reviewed, Consent Obtained/Reviewed and Anes Risks/Benef Reviewed Patient Risk: Intermediate Procedure Risk: Low Anesthetic Plan Anesthetic Plan: MAC: and Agree w/ Assess. and Plan Disposition: Standard PACU
[2024-05-25 12:30] VITALS: BP 153/93; PULSE 95; RESP 15; TEMP 36.1; O2SAT 98
[2024-05-25 12:48] VITALS: BP 160/98; PULSE 95; RESP 17; TEMP 36.1; O2SAT 94
--- NOTE | 2024-05-25 13:24 | P.OP_ITS ---
Operative Note Operative Note Date of Service: 05/25/24 Narrative: Preoperative diagnosis: [] Left symptomatic enlarging neck sebaceous cyst Postop diagnosis: [] The same Procedure [] wide local excision left neck sebaceous cyst Surgeon: [] Preston Consulting Project Director: [] Elizabeth Type of Anesthesia: [] MAC Indication for surgery: [] Final specimen measured approximately 4 x 2 cm consistent with a large sebaceous cyst Findings: [] Patient brought to the operating room, placed on operative table supine position, after an adequate level of MAC anesthesia was induced the left mid anterior lateral neck was prepped and draped in usual sterile fashion. Using a transverse by elliptical incision encompassing the mass in question with final dimensions as described above, this carried down through skin, subcutaneous tissue, and circumferentially dissection was performed using Bovie. Specimen sent to pathology. Wound was irrigated, secured hemostasis, and closed using interrupted inverted dermal 3-0 Vicryl sutures followed by Steri-Strips and sterile dressings. Wound was infiltrated the beginning at the end of the case with 0.5% Marcaine/1% lidocaine. Sponge, needle, and instrument counts were reported correct. Patient tolerated the procedure well and emerged from anesthesia stable condition. EBL minimal
--- OUTSIDE RECORDS SUMMARY | 2024-05-25 14:56 | XMS_ITS | Continuity of Care Document ---
Author Organization [facility] ter Address [address] [place] [id number]- Care Team Providers Care Forester Silviculture Name Role Phone Pk Mock MD Primary Care Physician [phone] Encounter [facility] [place] Date(s): 04/05/24 - 04/05/[address] [address]- Discharge Disposition: A-D/C Walkout Attending Physician: Not on Staff, Attending MD Admitting Physician: Not on Staff, Admitting MD Referring Physician: Not on Staff, Referring MD Allergies, Adverse Reactions, Alerts No Known Allergies Medications Ecotrin 325 mg oral enteric coated tablet 1 tablet = 325 mg, By Mouth, Daily, 0 Refills, Maintenance, 08/01/13 13:02:42 Start Date: 08/01/13 Status: Ordered FLUoxetine 40 mg oral capsule 1 capsule = 40 mg, By Mouth, Daily, # 30 capsule, 0 Refills, Maintenance, 08/25/16 8:22:39, Capsule Start Date: 08/25/16 Status: Ordered hydrochlorothiazide-lisinopril 12.5 mg-20 mg oral tablet 1 tablet, By Mouth, 2 times a day, # 30 tablet, 0 Refills, Maintenance, 08/25/16 8:21:47, Tablet Start Date: 08/25/16 Status: Ordered omeprazole 20 mg oral enteric coated capsule 1 capsule = 20 mg, By Mouth, Daily, 0 Refills, Maintenance, 08/01/13 13:01:41 Start Date: 08/01/13 Status: Ordered propranolol 60 mg oral tablet 1 tablet = 60 mg, By Mouth, Daily, # 180 tablet, 0 Refills, Maintenance, 08/25/16 8:23:19, Tablet Start Date: 08/25/16 Status: Ordered simvastatin 40 mg oral tablet 1 tablet = 40 mg, By Mouth, Daily at bedtime, 0 Refills, Maintenance, 08/01/13 13:02:28 Start Date: 08/01/13 Status: Ordered Zofran 4 mg oral tablet 1 tablet = 4 mg, By Mouth, Every 8 hours, PRN as needed for nausea/vomiting, # 16 tablet, 0 Refills, Maintenance, 10/05/16 17:04:44, Tablet Start Date: 10/05/16 Status: Ordered Problem List Condition Confirmation Course Effective Dates Status Health St atus Informant Obese class I Confirmed Active Vital Signs Most recent to oldest [Reference Range]: 1 Height 166 cm (04/05/24 5:40 PM) Weight 83 kg (04/05/24 5:40 PM) Oxygen Saturation [94-100 %] 97 % (04/05/24 5:40 PM) Pulse Rate [55-90 bpm] 79 bpm (04/05/24 5:40 PM) Body Mass Index [18.5-24.99 kg/m2] 30.12 kg/m2 *>HHI* (04/05/24 5:40 PM) Blood Pressure [90-138/55-84 mm Hg] 136/ 69mm Hg (04/05/24 5:40 PM) Respiratory Rate [16-30 br/min] 18 br/mi n (04/05/24 5:40 PM) Temperature [96.8-100.4 DegF] 98.3 DegF (04/05/24 5:40 PM) Mode of Delivery (Oxygen) Room air (04/05/24 5:40 PM) Blood pressure sites Arm, left (04/05/24 5:40 PM) Temperature Route Oral (04/05/24 5:40 PM) Dry Weight 83 kg (04/05/24 5:40 PM) Weight Obtained Via Patient/family state d (04/05/24 5:40 PM) Dry Weight Obtained Via Patient/family s tated (04/05/24 5:40 PM) Patient Care team information Care Team Personnel Name: Pk Mock MD Position: S Outreach Member Role: PCP Address: Address: [address] [place] [address]- Care Team Related Persons Name: JUDIT PAEZ Address: [address] [place] [address]
== END 2024-05-25 13:19 | disposition home or self-care (01) ==
PROVIDERS: PCP Internal Medicine; Visit Provider Surgery
PROC: (CPT 11424; principal; 2024-05-25 11:40)
DX: L72.3 Sebaceous cyst (principal); I10 Essential (primary) hypertension; E78.00 Pure hypercholesterolemia, unspecified; E11.9 Type 2 diabetes mellitus without complications; G47.33 Obstructive sleep apnea (adult) (pediatric); F41.9 Anxiety disorder, unspecified; Z99.89 Dependence on other enabling machines and devices; Z79.84 Long term (current) use of oral hypoglycemic drugs; Z79.899 Other long term (current) drug therapy; Z90.710 Acquired absence of both cervix and uterus; Z90.49 Acquired absence of other specified parts of digestive tract
CPT/HCPCS: 11424; 82947; 88304; J0690; J1100; J2003; J2704; J3010

== ENCOUNTER → 2024-05-25 09:57 | Outpatient (BNV) | payer MEDICARE, OTHER, SELFPAY | PROVIDERS: PCP Internal Medicine; Visit Provider Surgery | DX: L72.3 Sebaceous cyst (principal) | CPT/HCPCS: 11424 ==

== ENCOUNTER 2024-06-05 09:40 | Outpatient (AMB) | payer MEDICARE, SELFPAY ==
--- NOTE | 2024-06-05 09:43 | MHC.OFFVIS ---
Intake Visit Reasons: s/p WLE left neck mass Intake Note: Patient here s/p WLE mass on Lt neck. Reports incision healing well. Patient c/o: no concerns. 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 She has no wound issues or complaints. Pathology is benign [facility] Medical History (Updated 05/25/24 @ 11:06 by Mariella Harris RN) Anxiety Sleep apnea Elevated cholesterol HTN (hypertension) Diabetes Surgical History (Updated 06/05/24 @ 10:08 by Melo Johnston MD) Hx laparoscopic cholecystectomy (08/18/23) H/O hysterectomy for benign disease Social History Comment: COUNTS CORRECT Patient Tobacco Use Status: Never used Tobacco Physical Exam Neck Other: Incision is clean dry and intact healing very well Assessment & Plan Assessment & Plan (1) Postop check: Code(s): Z09 - Encounter for follow-up examination after completed treatment for conditions other than malignant neoplasm Category: Surgical Plan Patient was been given local instructions and will otherwise follow-up p.r.n.. All questions answered Coding Level of Care Code Global (51382) Diagnoses Postop check Z09
== END 2024-06-05 09:52 | disposition home or self-care (01) ==
PROVIDERS: PCP Internal Medicine; Visit Provider Surgery
DX: Z09 Encounter for follow-up examination after completed treatment for conditions other than malignant neoplasm (principal)
CPT/HCPCS: 99024

== ENCOUNTER → 2024-06-05 09:40 | Outpatient (BNVA) | payer MEDICARE, SELFPAY | PROVIDERS: PCP Internal Medicine; Visit Provider Surgery | DX: Z09 Encounter for follow-up examination after completed treatment for conditions other than malignant neoplasm (principal); Z87.2 Personal history of diseases of the skin and subcutaneous tissue; Z98.890 Other specified postprocedural states | CPT/HCPCS: 99212 ==

== ENCOUNTER 2024-07-03 08:59 | Outpatient (REF) | payer MEDICARE, SELFPAY ==
[2024-07-03 10:51] LABS: MANUAL DIFF FLAG NO
[2024-07-03 10:57] LABS: Basophils Absolute Auto 0.1 X10*3/uL (0.0-0.2); Basophils Percent Auto 1.1 % (0-2); Eosinophils Absolute Auto 0.2 X10*3/uL (0.0-0.4); Hematocrit 43.6 % (37.0-47.0); Hemoglobin 15.2 g/dl (12.0-16.0); Imm Gran Abs Auto 0.02 X10*3/uL (0.00-0.03); Imm Gran Pct Auto 0.2 % (0.0-0.4); Lymphocytes Absolute Auto 1.5 X10*3/uL (1.2-4.9); Mean Corpuscular HGB Conc 34.9 g/dl (31.0-35.0); Mean Corpuscular Hemoglobin 29.7 pg (27.0-33.0); Mean Corpuscular Volume 85.2 fL (80.0-98.0); Mean Platelet Volume 12.1 fL (9.4-12.3); Monocytes Absolute Auto 0.6 X10*3/uL (0.1-1.2); Monocytes Percent Auto 6.5 % (2-11); Neutrophils Absolute Auto 7.1 x10*3/uL (2.0-8.3); Neutrophils Percent Auto 74.2 % (45-73); Platelet Count 189 X10*3/uL (160-400); Red Blood Count 5.12 X10*6/uL (4.20-5.50); Red Cell Distribution Width 13.2 % (11.0-16.0); White Blood Count 9.6 X10*3/uL (4.8-10.8)
[2024-07-03 11:07] LABS: Alanine Aminotransferase 32 U/L (0-31); Albumin Level 4.5 g/dL (3.5-5.0); Alkaline Phosphatase 84 U/L (39-117); Anion Gap 13 (12-20); Aspartate Amino Transferase 31 U/L (5-31); Bilirubin Total 0.6 mg/dL (0.0-1.0); Blood Urea Nitrogen 14 mg/dL (9-16); Calcium 9.4 mg/dL (8.4-10.2); Carbon Dioxide 27 mmol/L (22-29); Chloride 102 mmol/L (96-108); Estimated Glomerular Filt Rate > 60; Glucose Random 230 mg/dL (60-115); Potassium 3.6 mmol/L (3.3-5.1); Sodium 138 mmol/L (135-145); Total Protein 7.9 g/dL (6.5-8.0)
[2024-07-03 11:16] LABS: Estimated Average Glucose 203 mg/dL; Hemoglobin A1C 266.4588 umol/L; Hemoglobin A1c % 8.7 % (<6.0); Total Hemoglobin (HGBA1C) 3726.6899 umol/L
== END 2024-07-03 09:00 | disposition home or self-care (01) ==
LOC: HO.10HDL 08:59
PROVIDERS: Visit Provider Internal Medicine
DX: I10 Essential (primary) hypertension (principal); G47.33 Obstructive sleep apnea (adult) (pediatric); E11.9 Type 2 diabetes mellitus without complications; K57.90 Diverticulosis of intestine, part unspecified, without perforation or abscess without bleeding
CPT/HCPCS: 36415; 80053; 83036; 85025

== ENCOUNTER 2024-09-13 08:54 | Outpatient (REF) | payer MEDICARE, SELFPAY | END 2024-09-13 08:55 | disposition home or self-care (01) | LOC: HO.MAMMO 08:54 | PROVIDERS: PCP Internal Medicine; Visit Provider Internal Medicine | DX: Z12.31 Encounter for screening mammogram for malignant neoplasm of breast (principal) | CPT/HCPCS: 77063; 77067 ==

== ENCOUNTER → 2024-09-13 09:15 | Outpatient (BNV) | payer MEDICARE, SELFPAY | PROVIDERS: PCP Internal Medicine; Visit Provider Internal Medicine | DX: Z12.31 Encounter for screening mammogram for malignant neoplasm of breast (principal) | CPT/HCPCS: 77063; 77067 ==

== ENCOUNTER 2024-10-10 09:26 | Outpatient (REF) | payer MEDICARE, SELFPAY ==
[2024-10-10 13:55] LABS: Estimated Average Glucose 171 mg/dL; Hemoglobin A1C 230.5206 umol/L; Hemoglobin A1c % 7.6 % (<6.0); Total Hemoglobin (HGBA1C) 3881.0047 umol/L
[2024-10-10 14:10] LABS: Microalbum/Creatinine Ratio Ur 42.5 ug/mg cr (<30)
[2024-10-10 14:30] LABS: Alanine Aminotransferase 34 U/L (0-31); Albumin Level 4.6 g/dL (3.5-5.0); Alkaline Phosphatase 86 U/L (39-117); Anion Gap 11 (12-20); Aspartate Amino Transferase 70 U/L (5-31); Bilirubin Total 0.6 mg/dL (0.0-1.0); Blood Urea Nitrogen 19 mg/dL (9-16); Carbon Dioxide 28 mmol/L (22-29); Chloride 105 mmol/L (96-108); Cholesterol 164 mg/dL (<200); Estimated Glomerular Filt Rate > 60; Glucose Fasting 200 mg/dL (60-99); HDL Cholesterol 37 mg/dL (>40); LDL Cholesterol Calculated 65 mg/dL (<100); Potassium 3.4 mmol/L (3.3-5.1); Sodium 141 mmol/L (135-145); Total Protein 8.1 g/dL (6.5-8.0); Triglycerides 313 mg/dL (<150)
== END 2024-10-10 09:27 | disposition home or self-care (01) ==
LOC: HO.10HDL 09:26
PROVIDERS: Visit Provider Internal Medicine
DX: I10 Essential (primary) hypertension (principal); E11.9 Type 2 diabetes mellitus without complications; E78.5 Hyperlipidemia, unspecified
CPT/HCPCS: 36415; 80053; 80061; 82043; 82570; 83036

== ENCOUNTER 2024-10-17 09:15 | Outpatient (AMB) | payer MEDICARE, SELFPAY ==
[2024-10-17 09:28] VITALS: BP 132/80; PULSE 88; TEMP 36.3; O2SAT 98; BMI 30.3
--- NOTE | 2024-10-17 09:28 | A.OFFPC_ITS ---
Vital Signs 10/17/24 09:28 Height 5 ft 5 in Weight 182 lb BMI 30.3 BP 132/80 Blood Pressure Location Lt brachial Position Sitting Pulse 88 Pulse Source Pulse Oximeter Temp 97.4 F Temp Source Axillary Pulse Oximetry (%) 98 Oxygen Delivery Method Room Air Intake Visit Reasons: Routine General Education Instructor Required: No Accompanied by: Self / Same As Patient Allergies No Known Allergies Allergy (Verified 10/17/24 09:38) Tobacco use date assessed: 10/17/24 Fall risk assessment: No Falls in past year Last assessed Fall Risk: 10/17/24 Dental Screening Dental Screen Date: 10/17/24 Did you have a dental visit in the last 12 months?: No Did you have a dental problem in the last 6 months where you did not have access to dental care?: No [facility] Medical History (Updated 10/17/24 @ 10:13 by Te Hunt MD) Insomnia Anxiety Sleep apnea Elevated cholesterol HTN (hypertension) Diabetes Surgical History Hx laparoscopic cholecystectomy (08/18/23) H/O hysterectomy for benign disease Family History (Updated 10/17/24 @ 09:45 by Inga Soria CMA) Mother No problems noted. Father No problems noted. Social History Housing: House Comment: COUNTS CORRECT Patient Tobacco Use Status: Never used Tobacco e-Cigarette/Vaping Use: Never Used service: No Current occupational status: retired Cognitive needs: No Hearing needs: No Vision needs: Yes (reading glasses) Questionnaire PHQ-9 Over the last 2 weeks, how often have you been bothered by any of the following problems? 1. Little interest or pleasure in doing things: not at all 2. Feeling down, depressed, or hopeless: several days 3. Trouble falling or staying asleep, or sleeping too much: several days 4. Feeling tired or having little energy: not at all 5. Poor appetite or overeating: not at all 6. Feeling bad about yourself - or that you are a failure or have let yourself or your family down: not at all 7. Trouble concentrating on things, such as reading the newspaper or watching television: not at all 8. Moving or speaking so slowly that other people could have noticed. Or the opposite - being so fidgety or restless that you have been moving around a lot more than usual: not at all 9. Thoughts that you would be better off or of hurting yourself in some way: not at all Total score: 2 Source: Developed by Drs. Clarence Holland, Mohit Whitney and colleagues, with an educational santy from [employer] 2000. Thrive Questionnaire Date Thrive assessed: 10/17/24 I am a: Patient Within the past 12 months, did the food you bought not last and you didn't have the money to get more?: Never true Within the past 12 months, did you worry whether your food would run out before you got money to buy more?: Never true Do you have trouble paying for medicines?: No Do you have trouble getting transportation to medical appointments?: No Do you have trouble paying your heating and electricity bill?: No Do you have trouble taking care of your child, family member or friend?: No Do you have trouble with day-to-day activities such as bathing, preparing meals, shopping, managing finances, etc.?: No Are you currently unemployed and looking for a job?: No THRIVE Score: 0 AUDIT C Alcohol Use Questionnaire (AUDIT-C) 1. How often do you have a drink containing alcohol?: Never 3. How often do you have six or more drinks on one occasion?: Never Total Score: 0 ARON-7 AMB Questionnaire ARON-7 Date ARON - 7 assessed: 11/07/24 Feeling nervous, anxious, or on edge: 1 = Several days Not being able to stop or control worryin = Not at all Worrying too much about different things: 0 = Not at all Trouble relaxin = Not at all Being so restless that it is hard to sit still: 0 = Not at all Becoming easily annoyed or irritable: 0 = Not at all Feeling afraid as if something awful might happen: 0 = Not at all Total ARON-7 score (0-4 normal; 5-9 mild; 10-14 moderate; 15-21 severe): 1 Source: Developed by Drs. Clarence Holland, Mohit Whitney and colleagues, with an educational santy from [employer] 2000. Physical exam (Primary Care) Vital Signs: Last Vital Signs Temp 97.4 F 10/17/24 09:28 Pulse 88 10/17/24 09:28 BP 132/80 10/17/24 09:28 Pulse Ox 98 10/17/24 09:28 Oxygen Delivery Method Room Air 10/17/24 09:28 BMI result Body Mass Index 30.3 Tobacco/Smoking Status: Tobacco use Status Tobacco use date assessed 10/17/24 10/17/24 09:39 Patient Tobacco Use Status Never used Tobacco 10/17/24 09:29 e-Cigarette/Vaping Use Never Used 10/17/24 09:39 PHQ-9: PHQ-9 Score PHQ-9: Total score 2 10/17/24 09:46 Thrive Assessment: Date of Thrive Assessment Date Thrive assessed 10/17/24 10/17/24 09:39 Coding Level of Care Code New Pt Level 4 (79896) Complex EM visit Add On G2211 Diagnoses Diabetes mellitus E11.9 Insomnia G47.00 Assessment & Plan Assessment & Plan (1) Diabetes mellitus: Code(s): E11.9 - Type 2 diabetes mellitus without complications Category: Surgical Plan: A1c greater than 7. BW has been ordered. Will call patient with results and medications will be adjusted accordingly/ (2) Insomnia: Code(s): G47.00 - Insomnia, unspecified Category: Medical Plan: Seroquel added to the regimen Plan History of Present Illness The patient is a 74-year-old female presenting with leg pain. She experiences a constant aching in both legs that has persisted for about a month. There are no notable relieving or exacerbating factors discussed. Other than the leg pain, the patient denies any additional complaints. She has a history of Type 2 Diabetes Mellitus, with her blood glucose levels being monitored approximately every other day. The last recorded level was 162 mg/dL, and her A1c was noted to be above 7 in June of the preceding year. She currently manages her diabetes with Jardiance and reports that her prescriptions are up-to-date with no need for refills at the moment. 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 - Family Status: Has 4 children and 10 grandchildren who live nearby. - Domestic Situation: Lives alone; is in a intermediate following a stroke. - Activity: Drives and recently renewed her license. - Stress Factors: Experiences stress related to her 's situation and reports difficulty sleeping. Review of Systems - Musculoskeletal: Reports constant aching in the legs for one month. - Endocrine: Reports monitoring blood sugar levels every two days. - Ophthalmologic: Reports needing glasses for reading, otherwise vision is good. - Neurologic: Denies any headaches, dizziness, or other neurological complaints. - Psychiatric: Reports stress due to 's condition and difficulty sleeping. Physical Exam General: Cooperative and healthy appearing Nutritional Appearance: Well nourished Orientation/consciousness: Patient oriented x3 Limitations: No limitations Head: Normal to inspection General: Appearance normal, both eyes and all related structures Neck: Normal visual inspection Chest: Normal palpation of entire chest wall Respiratory: N ormal respiratory effort Neurology: Patient oriented x3, reports leg pain for about a month, not sleeping well, stressed. Results - Labs: Blood glucose level last recorded at 162 mg/dL, A1c previously >7 in June. Plan The management of the patient's leg pain includes a prescription for daily medication to improve her symptoms. Additionally, given her history of Type 2 Diabetes Mellitus, I ordered blood work to assess her current A1c levels, aiming to better ascertain her glycemic control. Her medication regimen with Jardiance will be maintained with adjustments made based on lab results. Given her stress and difficulty sleeping, I prescribed medication to assist with sleep. All prescriptions and medication plans have been discussed with the patient, and the necessity for follow-up in six months has been established. No immediate changes to her current diabetes medication are planned due to adequate arrangements through her pharmacy. Patient was informed and verbally consented to the use of an ambient scribe for clinic note documentation during this visit. Discussion Notes During today's visit, I discussed with the patient the management of her leg pain, for which a daily medication was prescribed to relieve her symptoms. I emphasized the importance of blood work to evaluate her A1c levels as part of diabetes management and maintained her current practice with Jardiance. We reviewed the potential side effects and the necessity of adjusting her regimen pending lab results. Her concerns about sleep difficulties were addressed by prescribing sleep aids, recognizing the stress related to her 's health condition. Her understanding of the treatment plan and follow-up was confirmed, and consent was obtained for new medications. I recommended a six-month follow- up to re-evaluate her treatment progress and any necessary adjustments. Patient Instructions - Take prescribed medication once daily to help with leg pain. - Get blood work done to assess A1c levels as discussed. - Continue to take Jardiance as currently prescribed for diabetes management. - Use prescribed sleep aid as advised for better sleep. - Attend the next scheduled follow-up appointment in six months to review progress. - Contact the office if there are changes in symptoms or concerns arise before the next visit. Orders: Orders Complete Blood Count no Diff Today E11.9 - Type 2 diabetes mellitus without complications Lipid Panel Today E11.9 - Type 2 diabetes mellitus without complications Liver Panel Today E11.9 - Type 2 diabetes mellitus without complications UA and rflx microscopic Today E11.9 - Type 2 diabetes mellitus without complications Basic Metabolic Panel Today E11.9 - Type 2 diabetes mellitus without complications Hemoglobin A1c Today E11.9 - Type 2 diabetes mellitus without complications Microalbumin, Random (w Creat) Today E11.9 - Type 2 diabetes mellitus without complications Thyroid Stimulating Hormone Today E11.9 - Type 2 diabetes mellitus without complications Medications: New quetiapine (Seroquel) 50 mg PO BEDTIME 90 tabs 1RF
== END 2024-10-17 10:11 | disposition home or self-care (01) ==
LOC: HO.HMCHD 09:15
PROVIDERS: PCP Internal Medicine; Visit Provider Internal Medicine
DX: E11.9 Type 2 diabetes mellitus without complications (principal); G47.00 Insomnia, unspecified

== ENCOUNTER → 2024-10-17 09:15 | Outpatient (BNVA) | payer MEDICARE, SELFPAY | PROVIDERS: PCP Internal Medicine; Visit Provider Internal Medicine | DX: E11.9 Type 2 diabetes mellitus without complications (principal); G47.00 Insomnia, unspecified | CPT/HCPCS: 96127; 99202 ==

== ENCOUNTER 2025-03-01 11:04 | Outpatient (AMB) | payer MEDICARE, OTHER, SELFPAY ==
--- NOTE | 2025-03-01 11:07 | MHC.PC.OV ---
Vital Signs 03/01/25 11:13 03/01/25 11:24 Height 5 ft 5 in Weight 178 lb 2 oz BMI 29.6 BP 142/96 H 128/90 H Blood Pressure Location Rt brachial Rt brachial Position Sitting Sitting Respiration 14 Pulse 84 Pulse Source Pulse Oximeter Pulse Oximetry (%) 96 Oxygen Delivery Method Room Air Intake Visit Reasons: f/u Intake Note: Follow up Environmental Scientists Required: No Allergies No Known Allergies Allergy (Verified 03/01/25 11:08) Tobacco use date assessed: 03/01/25 Fall risk assessment: No Falls in past year Last assessed Fall Risk: 03/01/25 Dental Screening Dental Screen Date: 10/17/24 HPI HPI Comments History of Present Illness Details The patient is a 74 year old with a past medical history of type 2 diabetes, htn, hld, GAMA, insomnia presenting for follow up. She was seen in October Diabetes-on jardiance. Last A1C 7.6% down from 8.3. She is due for A1C. CV-On simvastatin, lisinopril-hctz, amlodipine. BH-stable on current medications Patient reports history of headache/migraines. Lately she has been having increased frequency and severity of headaches. They can start at any time of day. They have been persistent and unrelenting. Happen bilaterally across the forehead top of the head, ear fullness. Denie sinus congestion. ROS see HPI PHYSICAL EXAM: GENERAL: Alert and oriented x 3. NAD EYES: EOMI. Anicteric. HENT: Moist mucous membranes. No scleral icterus. No cervical lymphadenopathy. LUNGS: Clear to auscultation bilaterally. CARDIOVASCULAR: Regular rate and rhythm. No murmur. No JVD. ABDOMEN: Soft, non-tender +bs EXTREMITIES: No edema. Non-tender. SKIN: No rashes or lesions. Warm. NEUROLOGIC: No focal neurological deficits. CN II-XII grossly intact PSYCHIATRIC: Cooperative. Appropriate mood and affect [facility] Medical History (Updated 03/03/25 @ 12:00 by Hannah Wright MD) Insomnia Anxiety Sleep apnea Elevated cholesterol HTN (hypertension) Diabetes Surgical History (Updated 03/03/25 @ 12:00 by Hannah Wright MD) Hx laparoscopic cholecystectomy (08/18/23) H/O hysterectomy for benign disease Family History (Updated 10/17/24 @ 09:45 by Inga Soria MA) Mother No problems noted. Father No problems noted. Social History Housing: House Comment: COUNTS CORRECT Patient Tobacco Use Status: Never used Tobacco e-Cigarette/Vaping Use: Never Used service: No Current occupational status: retired Cognitive needs: No Hearing needs: No Vision needs: Yes (reading glasses) Questionnaire PHQ-9 Over the last 2 weeks, how often have you been bothered by any of the following problems? 1. Little interest or pleasure in doing things: not at all 2. Feeling down, depressed, or hopeless: nearly every day 3. Trouble falling or staying asleep, or sleeping too much: nearly every day 4. Feeling tired or having little energy: nearly every day 5. Poor appetite or overeating: more than half the days 6. Feeling bad about yourself - or that you are a failure or have let yourself or your family down: more than half the days 7. Trouble concentrating on things, such as reading the newspaper or watching television: not at all 8. Moving or speaking so slowly that other people could have noticed. Or the opposite - being so fidgety or restless that you have been moving around a lot more than usual: not at all 9. Thoughts that you would be better off or of hurting yourself in some way: not at all Total score: 13 Depression Screening Interpretation: Positive Depression Screening Follow-up: Existing condition Depression Screening Done: Yes 14217 - PHQ-9 Billing: Yes Source: Developed by Drs. Clarence Holland, Nkechi Kincaid, Mohit Carolina and colleagues, with an educational santy from [employer]. Thrive Questionnaire Date Thrive assessed: 10/17/24 I am a: Patient What is your living situation today?: I have a steady place to live Within the past 12 months, did the food you bought not last and you didn't have the money to get more?: I choose not to answer this question Within the past 12 months, did you worry whether your food would run out before you got money to buy more?: I choose not to answer this question Do you have trouble paying for medicines?: No Do you have trouble getting transportation to medical appointments?: No Do you have trouble paying your heating and electricity bill?: No Do you have trouble taking care of your child, family member or friend?: No Do you have trouble with day-to-day activities such as bathing, preparing meals, shopping, managing finances, etc.?: No Are you currently unemployed and looking for a job?: I choose not to answer this question Are you interested in more education?: No Please select the resources that you would like help with: None Currently or been in a relationship where the following occur: No concerns reported THRIVE Score: 0 AUDIT C Alcohol Use Questionnaire (AUDIT-C) 1. How often do you have a drink containing alcohol?: Never 3. How often do you have six or more drinks on one occasion?: Never Total Score: 0 ARON-7 AMB Questionnaire ARON-7 Date ARON - 7 assessed: 11/07/24 Feeling nervous, anxious, or on edge: 3 = Nearly every day Not being able to stop or control worryin = Nearly every day Worrying too much about different things: 3 = Nearly every day Trouble relaxin = Nearly every day Being so restless that it is hard to sit still: 2 = More than half the days Becoming easily annoyed or irritable: 3 = Nearly every day Feeling afraid as if something awful might happen: 2 = More than half the days Total ARON-7 score (0-4 normal; 5-9 mild; 10-14 moderate; 15-21 severe): 19 Source: Developed by Drs. Clarence Holland, Nkechi Kincaid, Mohit Carolina and colleagues, with an educational santy from [employer]. Physical exam (Primary Care) Vital Signs: Last Vital Signs Pulse 84 03/01/25 11:13 Resp 14 03/01/25 11:13 BP 128/90 H 03/01/25 11:24 Pulse Ox 96 03/01/25 11:13 Oxygen Delivery Method Room Air 03/01/25 11:13 BMI result Body Mass Index 29.6 Tobacco/Smoking Status: Tobacco use Status Tobacco use date assessed 03/01/25 03/01/25 11:18 Patient Tobacco Use Status Never used Tobacco 03/01/25 11:18 e-Cigarette/Vaping Use Never Used 03/01/25 11:08 PHQ-9: PHQ-9 Score PHQ-9: Total score 13 03/01/25 11:43 Depression Screening Interpretation: Positive Depression Screening Follow-up: Existing condition Thrive Assessment: Date of Thrive Assessment Date Thrive assessed 10/17/24 03/01/25 11:08 Currently or been in a relationship where the following occur: No concerns reported Results AMB Hemoglobin A1c AMB Hemoglobin A1c 7.3 % Last Edit by Laurel Burgos CMA on 03/01/25 11:24 Results Reviewed Results Reviewed: Laboratory Last Values Hgb A1c (Clinic) 7.3 % (4.0-6.0) H 03/01/25 11:20 Coding Level of Care Code Est Pt Level 4 (49525) Diagnoses Increased frequency of headaches R51.9 Increased severity of headaches R51.9 Type 2 diabetes mellitus with hyperglycemia, without long-term current use of insulin E11.65 Diabetes mellitus type: type 2 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: without mcfp use Diabetes mellitus complication status: with hyperglycemia Primary hypertension I10 Hypertension type: primary hypertension Additional Codes PHQ-9 - 40074 - PHQ-9 Billing: Yes ([id number]) Assessment & Plan Assessment & Plan (1) Increased frequency of headaches: Code(s): R51.9 - Headache, unspecified Category: Medical (2) Increased severity of headaches: Code(s): R51.9 - Headache, unspecified Category: Medical (3) Diabetes mellitus: Code(s): E11.9 - Type 2 diabetes mellitus without complications Category: Surgical Qualifiers: Diabetes mellitus type: type 2 Diabetes mellitus mcfp insulin use: without termite exterminator helper use Diabetes mellitus complication status: with hyperglycemia Qualified Code(s): E11.65 - Type 2 diabetes mellitus with hyperglycemia (4) HTN (hypertension): Code(s): I10 - Essential (primary) hypertension Category: Medical Qualifiers: Hypertension type: primary hypertension Qualified Code(s): I10 - Essential (primary) hypertension Plan 65 year old for follow up Diabetes-A1C is due Increased frequency and severity of headaches. MRI ordered. BH-increased depression, headaches. start duloxetine Orders: Orders Comprehensive Met. Panel 3 Months E11.9 - Type 2 diabetes mellitus without complications, I10 - Essential (primary) hypertension, K80.50 - Calculus of bile duct without cholangitis or cholecystitis without obstruction Hemoglobin A1c 3 Months E11.9 - Type 2 diabetes mellitus without complications, I10 - Essential (primary) hypertension, K80.50 - Calculus of bile duct without cholangitis or cholecystitis without obstruction Lyme IgG/IgM w/reflex to WB 3 Months E11.9 - Type 2 diabetes mellitus without complications, I10 - Essential (primary) hypertension, K80.50 - Calculus of bile duct without cholangitis or cholecystitis without obstruction AMB Hemoglobin A1c 03/01/25 E11.9 - Type 2 diabetes mellitus without complications Complete Blood Count Auto Diff 3 Months E11.9 - Type 2 diabetes mellitus without complications, I10 - Essential (primary) hypertension, K80.50 - Calculus of bile duct without cholangitis or cholecystitis without obstruction Lipid Panel 3 Months E11.9 - Type 2 diabetes mellitus without complications, I10 - Essential (primary) hypertension, K80.50 - Calculus of bile duct without cholangitis or cholecystitis without obstruction TSH reflex Free T4 3 Months E11.9 - Type 2 diabetes mellitus without complications, I10 - Essential (primary) hypertension, K80.50 - Calculus of bile duct without cholangitis or cholecystitis without obstruction MR head/brain wo con 03/01/25 R51.9 - Headache, unspecified Medications: New amlodipine 5 mg PO DAILY 90 tabs 3RF duloxetine 30 mg PO DAILY 90 caps 3RF
[2025-03-01 11:13] VITALS: BP 142/96; PULSE 84; RESP 14; O2SAT 96; BMI 29.6
[2025-03-01 11:24] VITALS: BP 128/90
--- OUTSIDE RECORDS SUMMARY | 2025-03-01 11:49 | XMS_ITS | Patient Health Record ---
Author Organization [facility] Address [address] [place] [address] Care Team Providers Care Roofing Technician Name Role Phone Emili (RETIRED) Pk AMOS Primary Care Provide r Unavailable Clarence Mcgregor Unavailable [phone] Reason For Referral No Information Medications Medication SIG (Take, Route, Frequency, Duration) Notes Start Date End Date Status Suprep Bowel Prep 1 kit as directed Oral ly as directed for 1 dose 06/13/2013 Active PriLOSEC 20mg Active Wellbutrin SR 150mg Active Lipitor 20mg Active Aspirin 81 MG 1 tablet Orally Once a day for 30 day(s) Active Zestoretic 20/12.5 A ctive Simvastatin 40mg Act neeraj LORazepam 0.5mg Acti ve Lisinopril-hydroCHLOROthiaz jerry 20/12.5mg Active Calcium 600 + D Acti ve KlonoPIN 0.5mg Activ e FLUoxetine HCl 20mg Active Problems Problem Type SNOMED Code ICD Code Onset Dates Problem Status W/U Status Risk Notes Problem GERD (gastroesophage al reflux disease) (530.81) Active confirmed Problem History of adenomatous polyp of colon (566075448) History of adenomatous polyp of colon (V12.72) Active confirmed Plan Of Treatment Future Test Test Name Order Date COLONOSCOPY 06/13/2013 Insurance Providers Payer Name Payer Address Payer Phone Subscriber Number Group Number Insured Name Patient Relationship to Insured Coverage Start Date Coverage End Date MEDICARE OF [place] [address] [place] [id number] [phone] [id number] SARAH CARMONA Self - patient is the insured [facility] [address] [place] [address] [id number] ROSIE MikaelaSARAH Self - patient is the insured Medical (General) History Medical History History ICD Code EGD 10/2009-small HH-no Sanford's, no eso phagitis Flat tubular adenoma removed in 10/2009 GERD hypertension hyperlipidemia depression Denies CO,DM,CVA,Lung disease,renal dise ase Surgical History Surgery Date(Month/Year) breast [id number] D & C
== END 2025-03-01 11:44 | disposition home or self-care (01) ==
LOC: HO.HMCFM 11:05
PROVIDERS: PCP Internal Medicine; Visit Provider Internal Medicine
DX: R51.9 Headache, unspecified (principal); E11.65 Type 2 diabetes mellitus with hyperglycemia; I10 Essential (primary) hypertension

== ENCOUNTER → 2025-03-01 11:04 | Outpatient (BNVA) | payer MEDICARE, OTHER, SELFPAY | PROVIDERS: PCP Internal Medicine; Visit Provider Internal Medicine | DX: R51.9 Headache, unspecified (principal); E11.65 Type 2 diabetes mellitus with hyperglycemia; I10 Essential (primary) hypertension; Z79.84 Long term (current) use of oral hypoglycemic drugs; Z79.899 Other long term (current) drug therapy; Z13.31 Encounter for screening for depression | CPT/HCPCS: 83036; 96127; 99212 ==

== ENCOUNTER 2025-06-03 14:46 | Outpatient (AMB) | payer MEDICARE, SELFPAY ==
--- NOTE | 2025-06-03 14:50 | A.OFFPC_ITS ---
Vital Signs 06/03/25 14:51 06/03/25 15:02 Height 5 ft 5 in Weight 179 lb 2 oz BMI 29.8 BP 155/90 H 139/85 Blood Pressure Location Lt brachial Lt brachial Position Sitting Sitting Respiration 14 Pulse 91 Pulse Source Pulse Oximeter Temp 97.9 F Temp Source Oral Pulse Oximetry (%) 96 Oxygen Delivery Method Room Air Intake Visit Reasons: dm Intake Note: Diabetes follow up Instructional Services Specialist Required: No Allergies No Known Allergies Allergy (Verified 06/03/25 14:50) Tobacco use date assessed: 06/03/25 Fall risk assessment: No Falls in past year Last assessed Fall Risk: 06/03/25 Dental Screening Dental Screen Date: 10/17/24 HPI HPI Comments History of Present Illness Details The patient is a 74 year old with a past medical history of type 2 diab etes, htn, hld, GAMA, insomnia presenting for follow up. S Diabetes-on jardiance 10mg daily. A1C increased to 7.5% from 7.3% 7.6% down from 8.3. She is due for A1C. CV-On simvastatin, lisinopril-hctz, amlodipine. BP is mildly elevated. BH-stable on current medications At last visit Patient reports history of headache/migraines. Lately she has been having increased frequency and severity of headaches. They can start at any time of day. They have been persistent and unrelenting. Happen bilaterally across the forehead top of the head, ear fullness. Denies sinus congestion. MR order was placed but not scheduled no denial in chart. Will try to reorder as orders persist ROS Rash of belly button and abdomen PHYSICAL EXAM: GENERAL: Alert and oriented x 3. NAD EYES: EOMI. Anicteric. HENT: Moist mucous membranes. No scleral icterus. No cervical lymphadenopathy. LUNGS: Clear to auscultation bilaterally. CARDIOVASCULAR: Regular rate and rhythm. No murmur. No JVD. ABDOMEN: Soft, non-tender +bs EXTREMITIES: No edema. Non-tender. SKIN: confluent scaly erythema of the belly button and surrounding abdomen NEUROLOGIC: No focal neurological deficits. CN II-XII grossly intact PSYCHIATRIC: Cooperative. Appropriate mood and affect [facility] Medical History (Updated 03/03/25 @ 12:00 by Hannah Wright MD) Insomnia Anxiety Sleep apnea Elevated cholesterol HTN (hypertension) Diabetes Surgical History (Updated 03/03/25 @ 12:00 by Hannah Wright MD) Hx laparoscopic cholecystectomy (08/18/23) H/O hysterectomy for benign disease Family History (Updated 10/17/24 @ 09:45 by Inga Soria MA) Mother No problems noted. Father No problems noted. Social History Housing: House Comment: COUNTS CORRECT Patient Tobacco Use Status: Never used Tobacco e-Cigarette/Vaping Use: Never Used service: No Current occupational status: retired Cognitive needs: No Hearing needs: No Vision needs: Yes (reading glasses) Questionnaire Thrive Questionnaire Date Thrive assessed: 03/01/25 I am a: Patient What is your living situation today?: I have a steady place to live Within the past 12 months, did the food you bought not last and you didn't have the money to get more?: I choose not to answer this question Within the past 12 months, did you worry whether your food would run out before you got money to buy more?: I choose not to answer this question Do you have trouble paying for medicines?: No Do you have trouble getting transportation to medical appointments?: No Do you have trouble paying your heating and electricity bill?: No Do you have trouble taking care of your child, family member or friend?: No Do you have trouble with day-to-day activities such as bathing, preparing meals, shopping, managing finances, etc.?: No Are you currently unemployed and looking for a job?: I choose not to answer this question Are you interested in more education?: No Please select the resources that you would like help with: None Currently or been in a relationship where the following occur: No concerns reported THRIVE Score: 0 AUDIT C Alcohol Use Questionnaire (AUDIT-C) 1. How often do you have a drink containing alcohol?: Never 3. How often do you have six or more drinks on one occasion?: Never Total Score: 0 ARON-7 AMB Questionnaire ARON-7 Date ARON - 7 assessed: 11/07/24 Source: Developed by Drs. Clarence Holland, Nkechi Kincaid, Mohit Carolina and colleagues, with an educational santy from [employer]. Physical exam (Primary Care) Vital Signs: Last Vital Signs Temp 97.9 F 06/03/25 14:51 Pulse 91 06/03/25 14:51 Resp 14 06/03/25 14:51 BP 139/85 06/03/25 15:02 Pulse Ox 96 06/03/25 14:51 Oxygen Delivery Method Room Air 06/03/25 14:51 BMI result Body Mass Index 29.8 Tobacco/Smoking Status: Tobacco use Status Tobacco use date assessed 06/03/25 06/03/25 14:57 Patient Tobacco Use Status Never used Tobacco 06/03/25 14:57 e-Cigarette/Vaping Use Never Used 06/03/25 14:57 Thrive Assessment: Date of Thrive Assessment Date Thrive assessed 03/01/25 06/03/25 14:57 Currently or been in a relationship where the following occur: No concerns reported Results AMB Hemoglobin A1c AMB Hemoglobin A1c 0960 % Last Edit by Laurel Burgos CMA on 06/03/25 15:0 2 Results Reviewed Results Reviewed: Laboratory Last Values Hgb A1c (Clinic) 0960 % (4.0-6.0) H 06/03/25 14:58 Coding Level of Care Code Complex visit Add On G2211 Diagnoses Type 2 diabetes mellitus with hyperglycemia, without long-term current use of insulin E11.65 Diabetes mellitus type: type 2 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 Diabetes mellitus complication status: with hyperglycemia Primary hypertension I10 Hypertension type: primary hypertension Increased frequency of headaches R51.9 Increased severity of headaches R51.9 Assessment & Plan Assessment & Plan (1) Diabetes mellitus: Code(s): E11.9 - Type 2 diabetes mellitus without complications Category: Surgical Qualifiers: Diabetes mellitus type: type 2 Diabetes mellitus jail insulin use: without jail use Diabetes mellitus complication status: with hyperglycemia Qualified Code(s): E11.65 - Type 2 diabetes mellitus with hyperglycemia (2) HTN (hypertension): Code(s): I10 - Essential (primary) hypertension Category: Medical Qualifiers: Hypertension type: primary hypertension Qualified Code(s): I10 - Ess ential (primary) hypertension (3) Increased frequency of headaches: Code(s): R51.9 - Headache, unspecified Category: Medical (4) Increased severity of headaches: Code(s): R51.9 - Headache, unspecified Category: Medical Plan Headaches, continue to be increased in frequency and severity, right sided-MRI reordered DM-suboptimal control. Increase jardiance to 25mg daily Rash-consistent with fungal rash. terbanifine ordered. She denies uti, vaginal yeast infection She requests referral for hearing-this is placed Consider increase bp med-she is going to check her home pressure over the next few weeks Orders: Orders AMB Hemoglobin A1c 06/03/25 E11.65 - Type 2 diabetes mellitus with hyperglycemia MR head/brain wo con 06/03/25 R51.9 - Headache, unspecified Referrals Speech and Hearing Referral H91.90 - Unspecified hearing loss, unspecified ear Medications: New Jardiance (empagliflozin) 25 mg PO DAILY 90 tabs 3RF NS E11.65 - Type 2 diabetes mellitus with hyperglycemia clotrimazole-betamethasone 1-0.05 % 1 appl topical BID 45 grams 1RF 4 weeks terbinafine HCl 250 mg PO DAILY 7 tabs 0RF Discontinued empagliflozin (Jardiance) Discontinued Reason: Doctor's Order 10 mg PO DAILY 90 tabs 1RF
[2025-06-03 14:51] VITALS: BP 155/90; PULSE 91; RESP 14; TEMP 36.6; O2SAT 96; BMI 29.8
[2025-06-03 15:02] VITALS: BP 139/85
== END 2025-06-03 15:17 | disposition home or self-care (01) ==
LOC: HO.HMCFM 14:47
PROVIDERS: PCP Internal Medicine; Visit Provider Internal Medicine
DX: E11.65 Type 2 diabetes mellitus with hyperglycemia (principal)

== ENCOUNTER → 2025-06-03 14:46 | Outpatient (BNVA) | payer MEDICARE, SELFPAY | PROVIDERS: PCP Internal Medicine; Visit Provider Internal Medicine | DX: E11.65 Type 2 diabetes mellitus with hyperglycemia (principal); I10 Essential (primary) hypertension; R51.9 Headache, unspecified; Z79.84 Long term (current) use of oral hypoglycemic drugs | CPT/HCPCS: 83036; 99212 ==

== ENCOUNTER 2025-07-02 13:13 | Outpatient (REF) | payer MEDICARE, SELFPAY ==
--- NOTE | ~2025-07-02 | MR_ITS ---
EXAMINATION: MR BRAIN WITHOUT CONTRAST CLINICAL INFORMATION: 74-year-old female, complaining of parietal headaches. COMPARISON: None available. TECHNIQUE: MRI of the brain was obtained using routine sequences without contrast. Examination performed on a 1.5 [place] Siemens high-field unit. FINDINGS: There is no diffusion restriction. There is no intracranial hemorrhage, acute infarction, mass effect, or edema. Ventricles, sulci, and cisterns are mildly diffusely prominent, in keeping with age-related cerebral and cerebellar volume loss. No hydrocephalus. No shift of midline. No abnormal hemosiderin deposition is identified. There are a scattered punctate and minimally confluent foci of white matter T2 hyperintensity in the periventricular, subcortical, and hemispheric deep white matter, and central eleazar. These foci are nonspecific but statistically relate to mild/moderate small vessel ischemic changes. There is an old lacunar type infarct in the left subinsular region. Midline structures appear normally formed. The pituitary gland appears normal. Posterior fossa structures appear normal. Cerebellar tonsils are appropriately located. Major flow voids are preserved within the skull base. The globes and orbital contents demonstrate left lens replacement. They are otherwise normal. Paranasal sinuses demonstrate mild mucosal thickening in the bilateral maxillary and bilateral ethmoid sinuses. No air-fluid levels. Remainder of the paranasal sinuses are clear. The mastoids and tympanic cavities are normally aerated. Extracranial soft tissues demonstrate no abnormalities. No suspicious bone marrow changes are evident. Atlantoaxial joint demonstrates mild degenerative changes. MR/MR head/brain wo con IMPRESSION: 1. No evidence of intracranial hemorrhage, acute infarction, mass effect, or edema. 2. Mild to moderate white matter changes of small vessel ischemia. Old lacunar infarct noted in the left subinsular region. 3. Mild maxillary and ethmoid paranasal sinus disease. No air-fluid levels present. Electronically signed by: Bishop Pan MD 07/02/2025 04:01 PM [facility]
--- OUTSIDE RECORDS SUMMARY | 2025-07-02 17:07 | XMS_ITS | Patient Health Record ---
Author Organization [facility] Address [address] [place] [address] Care Team Providers Care Tool Carrier Name Role Phone Emili (RETIRED) Pk AMOS Primary Care Provide r Clarence Zamudio Unavailable [phone] Reason For Referral No Information Medications Medication SIG (Take, Route, Frequency, Duration) Notes Start Date End Date Status Suprep Bowel Prep 1 kit Solution as directed Orally as directed; Duration: 1 dose 06/13/2013 Active PriLOSEC 20mg Active Wellbutrin SR 150mg Active Lipitor 20mg Active Aspirin 81 MG 1 tablet Orally Once a day; Duration: 30 day(s) Active Zestoretic 20/12.5 A ctive Simvastatin 40mg Act neeraj LORazepam 0.5mg Acti ve Lisinopril-hydroCHLOROthiaz jerry 20/12.5mg Active Calcium 600 + D Acti ve KlonoPIN 0.5mg Activ e FLUoxetine HCl 20mg Active Social History Social History Additional Details Category Social Info Options Details Miscellaneous: Marital status: Occupation: retired Section Notes: Nonsmoker;no sig alcohol Problems Problem Type SNOMED Code ICD Code Onset Dates Problem Status W/U Status Risk Notes Problem Gastroesophageal reflux disease (070252106) GERD (gastroesophag eal reflux disease) (530.81) Active confirmed Problem History of adenomatous polyp of colon (180361075) History of adenomatous polyp of colon (V12.72) Active confirmed Plan Of Treatment Future Test Test Name Order Date COLONOSCOPY 06/13/2013 Insurance Providers Payer Name Payer Address Payer Phone Subscriber Number Group Number Insured Name Patient Relationship to Insured Coverage Start Date Coverage End Date MEDICARE OF [place] [address] [place] [id number] ROSIE AlSARAH Self - patient is the insured [facility] [address] [place] [address] [id number] SARAH CARMONA Self - patient is the insured Medical (General) History Medical History History ICD Code EGD 10/2009-small HH-no Sanford's, no eso phagitis Flat tubular adenoma removed in 10/2009 GERD hypertension hyperlipidemia depression Denies NM,DM,CVA,Lung disease,renal dise ase Surgical History Surgery Date(Month/Year) breast [id number] D & C
== END 2025-07-02 13:14 | disposition home or self-care (01) ==
LOC: HO.MRI 13:13
PROVIDERS: PCP Internal Medicine; Visit Provider Internal Medicine
DX: R51.9 Headache, unspecified (principal)
CPT/HCPCS: 70551

== ENCOUNTER → 2025-07-02 13:13 | Outpatient (BNV) | payer MEDICARE, SELFPAY | PROVIDERS: PCP Internal Medicine; Visit Provider Radiology Diagnostic Radiology | DX: R90.82 White matter disease, unspecified (principal); I67.82 Cerebral ischemia; J32.0 Chronic maxillary sinusitis; J32.2 Chronic ethmoidal sinusitis | CPT/HCPCS: 70551 ==